=== PATIENT | male | born 1945 | race Caucasian/White ===

== ENCOUNTER → 2025-01-19 13:45 | Outpatient (BNVA) | payer MEDICARE, SELFPAY | PROVIDERS: Visit Provider Family Medicine | DX: I50.9 Heart failure, unspecified (principal); I48.91 Unspecified atrial fibrillation; R06.09 Other forms of dyspnea; E83.42 Hypomagnesemia; R79.89 Other specified abnormal findings of blood chemistry; Z12.5 Encounter for screening for malignant neoplasm of prostate | CPT/HCPCS: 80053; 80061; 82607; 83735; 83880; 84443; 85025; G0103 ==

== ENCOUNTER → 2025-02-02 08:50 | Outpatient (BNVA) | payer MEDICARE, SELFPAY | PROVIDERS: PCP Family Medicine; Visit Provider Family Medicine | DX: E87.6 Hypokalemia (principal); T50.2X5A Adverse effect of carbonic-anhydrase inhibitors, benzothiadiazides and other diuretics, initial encounter; I48.91 Unspecified atrial fibrillation; G47.00 Insomnia, unspecified; I11.0 Hypertensive heart disease with heart failure | CPT/HCPCS: 80048 ==

== ENCOUNTER 2025-02-17 14:31 | Outpatient (CLI) | payer MEDICARE, SELFPAY ==
--- NOTE | 2025-02-17 15:00 | USCV_ITS ---
Leo Jung JR(Clary) Age: 79 Gender: M : 1945 Exam Date: 02/17/2025 15:00 Ordering Phys: Jalen Duarte DO Technologist: JOSE Exam Location[place] [facility] [place]: HF BP: 183 / 93 HR: 79 Rhythm: Sinus Technical Quality: Adequate MEASUREMENTS (Male / Female) Normal Values 2D ECHO LV Diastolic Diameter PLAX 5.3 cm 4.2 - 5.9 / 3.9 - 5.3 cm IVS Diastolic Thickness 1.2 cm 0.6 - 1.0 / 0.6 - 0.9 cm IVS Systolic Thickness 1.8 cm LVPW Diastolic Thickness 1.8 cm 0.6 - 1.0 / 0.6 - 0.9 cm LVPW Systolic Thickness 2.4 cm LVOT Diameter 2.1 cm LV Ejection Fraction 2D Teich 56.2 % LV Ejection Fraction MOD 4C 58.3 % LV Ejection Fraction MOD 2C 66.3 % LV Ejection Fraction 2C AL 66.1 % LA Diameter 4.5 cm RA Systolic Volume 4C AL 68.9 ml RA Systolic Volume 4C MOD 67.0 ml LA Sys Volume AL 80.8 cm cubed LA Sys Volume Index AL 37.9 cm cubed/m squared Aorta at Sinotubular Diameter 2.8 cm M-MODE LA Ao Ratio MM 1.2 AV Cusp Separation MM 1.1 cm DOPPLER AV Peak Velocity 250.0 cm/s LVOT Peak Velocity 168.0 cm/s AV Area Cont Eq vti 2.2 cm squared AV Area Cont Eq pk 2.2 cm squared MV Peak Velocity 116.0 cm/s MV Area PHT 2.3 cm squared Mitral E to A Ratio 0.9 TV Peak E Velocity 83.0 cm/s PV Peak Velocity 107.0 cm/s FINDINGS Left Ventricle Normal left ventricular size, systolic function and wall thickness, with no regional wall motion abnormalities. Left ventricular ejection fraction is estimated at 60 %. Grade I/IV diastolic dysfunction (abnormal relaxation filling pattern), normal to mildly elevated filling pressures. Right Ventricle The right ventricle is normal in size and function. Right Atrium The right atrium is normal in size. Left Atrium Moderately increased left atrial size. Mitral Valve Thickened mitral valve. No mitral valve stenosis. Mild mitral valve regurgitation. Aortic Valve Moderate aortic valve calcification. Mild aortic valve stenosis, mean gradient 13.3 mmHg, DAVID 2.2 cm squared. Trace aortic valve regurgitation. Tricuspid Valve Structurally normal tricuspid valve without significant stenosis or regurgitation. Pulmonary artery systolic pressure is normal. Pulmonic Valve Structurally normal pulmonic valve without significant stenosis. There is no pulmonic regurgitation. Pericardium Normal pericardium without effusion. Aorta Normal ascending aorta dimension. IVC The inferior vena cava appears normal. CONCLUSIONS Normal left ventricular size, systolic function and wall thickness, with no regional wall motion abnormalities. Left ventricular ejection fraction is estimated at 60 %. Grade I/IV diastolic dysfunction (abnormal relaxation filling pattern), normal to mildly elevated filling pressures. Moderately increased left atrial size. Thickened mitral valve. No mitral valve stenosis. Mild mitral valve regurgitation. Moderate aortic valve calcification. Mild aortic valve stenosis, mean gradient 13.3 mmHg, DAVID 2.2 cm squared. Trace aortic valve regurgitation. There is no pericardial effusion. Right atrial pressure is around 5 mm of mercury. Ajay Castaneda MD (Electronically Signed) Final Date: 24 February 2025 12:12 S
== END 2025-02-17 14:32 | disposition home or self-care (01) ==
LOC: RAD 14:32
PROVIDERS: PCP Family Medicine; Visit Provider Family Medicine
DX: I50.9 Heart failure, unspecified (principal); R06.09 Other forms of dyspnea; I48.91 Unspecified atrial fibrillation; R93.1 Abnormal findings on diagnostic imaging of heart and coronary circulation; I51.7 Cardiomegaly; I34.0 Nonrheumatic mitral (valve) insufficiency; I35.8 Other nonrheumatic aortic valve disorders; I35.0 Nonrheumatic aortic (valve) stenosis
CPT/HCPCS: 93306

== ENCOUNTER → 2025-02-18 14:25 | Outpatient (BNVA) | payer MEDICARE, SELFPAY | PROVIDERS: PCP Family Medicine; Visit Provider Family Medicine | DX: I50.9 Heart failure, unspecified (principal); M79.89 Other specified soft tissue disorders; W57.XXXA Bitten or stung by nonvenomous insect and other nonvenomous arthropods, initial encounter; E87.6 Hypokalemia; T50.2X5A Adverse effect of carbonic-anhydrase inhibitors, benzothiadiazides and other diuretics, initial encounter; X58.XXXA Exposure to other specified factors, initial encounter | CPT/HCPCS: 80053; 83880; 86003; 86008; 86618; 86666; 86757 ==

== ENCOUNTER 2025-02-27 14:43 | Outpatient (CLI) | payer MEDICARE, SELFPAY ==
--- NOTE | 2025-02-27 15:00 | USR_ITS ---
PROCEDURE INFORMATION: Exam: US Retroperitoneal, Complete, Kidneys and Bladder Exam date and time: 02/27/2025 3:03 PM Age: 79 years old Clinical indication: Condition or disease; Kidney or ureter condition; Other: - acute kidney failure; Additional info: N17.9 - acute kidney failure, unspecified TECHNIQUE: Imaging protocol: Real-time ultrasound of the retroperitoneum with image documentation. Complete exam focused on the bilateral kidneys and urinary bladder. COMPARISON: No relevant prior studies available. FINDINGS: The right kidney measures 9.8 cm in length. The left kidney measures 11.0 cm in length. There appears to be mild to moderate bilateral hydronephrosis. Etiology is not certain. This could be secondary to the urinary bladder distension, with and without vesicoureteral reflux. Other possible etiologies would include pyelonephritis, occult ureteral calculi, and less commonly ureteral stricture/neoplasm. No definite perinephric fluid. Both proximal ureters are probably dilated, but not well visualized. The renal parenchymal thickness and echogenicity appear within normal limits for age. There is no sonographically visible renal calculus, mass, or cyst. The urinary bladder appears significantly distended at the time of scanning. The urinary bladder measures about 18.5 x 11 x 13.5 cm, estimated volume approximately 14 30 cc. Please correlate clinically for possibility of bladder outlet obstruction. US/US renal BI* [id number] IMPRESSION: 1. There appears to be mild to moderate bilateral hydronephrosis. See additional discussion above. 2. Prominent urinary bladder distension, details above. 3. Other findings discussed above.
== END 2025-02-27 14:44 | disposition home or self-care (01) ==
LOC: RAD 14:48
PROVIDERS: PCP Family Medicine; Visit Provider Family Medicine
DX: N17.9 Acute kidney failure, unspecified (principal); N18.9 Chronic kidney disease, unspecified; N13.30 Unspecified hydronephrosis; N32.89 Other specified disorders of bladder
CPT/HCPCS: 76770

== ENCOUNTER → 2025-03-12 10:34 | Outpatient (BNVA) | payer MEDICARE, SELFPAY | PROVIDERS: PCP Family Medicine; Referring Provider Family Medicine; Visit Provider Internal Medicine Cardiovascular Disease | DX: R60.0 Localized edema (principal); I12.9 Hypertensive chronic kidney disease with stage 1 through stage 4 chronic kidney disease, or unspecified chronic kidney disease; N18.4 Chronic kidney disease, stage 4 (severe); I35.0 Nonrheumatic aortic (valve) stenosis; I49.1 Atrial premature depolarization; R07.9 Chest pain, unspecified; R00.2 Palpitations | CPT/HCPCS: 93005; 99204 ==

== ENCOUNTER 2025-03-16 13:39 | Inpatient (IN) | payer MEDICARE, SELFPAY ==
[2025-03-16] VITALS (27 sets, daily range): BP systolic 138–193; BP diastolic 58–116; PULSE 68–90; RESP 16–27; TEMP 36.6–37.3; O2SAT 90–99; BMI 27.1; BMI 28.3
--- NOTE | 2025-03-16 14:14 | CT_ITS ---
WS: [id number] CT HEAD NONCONTRAST HISTORY: weakness, off balance TECHNIQUE: Contiguous axial imaging performed through the brain. Bone and soft tissue windows. Sagittal and coronal reformats reviewed. All CT scans at [facility] use at least one of these dose optimization techniques: automated exposure control; mA and/or kV adjustment per patient size (includes targeted exams where dose is matched to clinical indication); or iterative reconstruction. DLP: 1210.78 mGy.cm COMPARISON: None available. No acute intracranial hemorrhage, midline shift or mass effect. Mild atrophy and small vessel disease. Slightly asymmetric volume loss in the LEFT temporal lobe probably from a prior infarct. There is encephalomalacia. No mass effect. Tiny lacunar infarct in the medial RIGHT hippocampus. Tiny lacunar infarct anterior limb RIGHT internal capsule. Ventricles: Mildly prominent ventricles. No hydrocephalus. Paranasal sinuses: As visualized are clear. Mastoid air cells: Well pneumatized. Calvarium and scalp: Skull is intact with no soft tissue edema or swelling. CT/CT head wo con* [id number] IMPRESSION: 1. No acute intracranial hemorrhage or edema. 2. Mild atrophy and small vessel disease. 3. Volume loss in the LEFT temporal lobe. Suspect there is a small infarct wit h encephalomalacia in the temporal lobe. Mild ex vacuo dilatation temporal horn of the lateral ventricle. 4. Prior lacunar infarcts, RIGHT hippocampus and internal capsule.
--- NOTE | 2025-03-16 14:14 | ECG_ITS ---
SNAPCARD [facility] Test Date: 2025-03-16 Pat Name: Leo Jung JR (Pat) Department: Room: Gender: Male [employer] Technician: : 1945 Requested By: David Patiño Order Number: [id number] Abiodun MD: Branden Vargas M.D. Measurements Intervals [place] Rate: 77 P: 58 MA: 250 QRS: 42 QRSD: 97 T: 63 QT: 393 QTc: 447 Interpretive Statements Multifocal atrial rhythm WITH FIRST DEGREE AV BLOCK. NONSPECIFIC ST & T-WAVE ABNORMALITY Compared to ECG 03/12/2025 10:48:58 First degree AV block now present T-wave abnormality still present Electronically Signed On 03-17-2025 08:00:22 CDT by Branden Vargas M.D. [email or web address]
--- NOTE | 2025-03-16 14:14 | XR_ITS ---
WS: [id number] XR chest 1V portable [id number] REASON FOR EXAM: weakness FINDINGS: Moderate tortuosity and ectasia of the thoracic aorta. Mild cardiomegaly. Calcified granulomas disease in both hemithoraces. No acute pulmonary parenchymal abnormality. 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 Multiple old healed right rib fractures. 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 XR/XR chest 1V portable [id number] IMPRESSION: No acute chest abnormality. Mild cardiomegaly.
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
[2025-03-16 14:31] LABS: Mean Corpuscular HGB Conc 30.9 g/dL (30-55); Mean Corpuscular Hemoglobin 29.3 pg (27-33); Mean Corpuscular Volume 95.1 fl (82-101); Nucleated Red Blood Cells % 0 %; Platelet Count 201 10^3/cmm (157-399); Red Blood Count 1.84 10^6/uL (3.85-5.65); White Blood Count 7.56 10^3/uL (3.29-11.43)
[2025-03-16 14:33] LABS: Hematocrit 17.5 % (37-53); Hemoglobin 5.40 g/dL (11.27-16.99)
[2025-03-16 14:51] LABS: Troponin(5th) Baseline 43 ng/L (0-15)
[2025-03-16 15:02] LABS: Alanine Aminotransferase 9 U/L (0-41); Albumin Level 3.4 g/dL (3.5-5.2); Alkaline Phosphatase 85 U/L (40-130); Anion Gap 16.5 (5-19); Aspartate Amino Transferase 9 U/L (0-40); Blood Urea Nitrogen 30 mg/dL (8-23); Calcium 8.4 mg/dL (8.5-10.5); Carbon Dioxide 23 mmol/L (22-29); Chloride 107 mmol/L (98-107); Creatinine Clr Calc Pharmacy 29.2458; Globulin 1.9 g/dL (1.3-4.6); Glucose 167 mg/dL (65-115); Magnesium 2.4 mg/dL (1.7-2.3); NT Pro B Type Natriuretic Pept 7242 pg/mL (0-450); Osmolality Calculated 304 mOsm/kg (285-295); Potassium 4.5 mmol/L (3.5-5.1); Sodium 142 mmol/L (136-145); Total Protein 5.3 g/dL (6.6-8.7)
[2025-03-16 15:23] LABS: Respiratory Syncytial Virus Ce NEGATIVE (Negative); SARS-CoV-2 PCR NEGATIVE (Negative)
--- NOTE | 2025-03-16 15:26 | CTR_ITS ---
PROCEDURE INFORMATION: Exam: CT Abdomen And Pelvis With Contrast Exam date and time: 03/16/2025 3:51 PM Age: 79 years old Clinical indication: Abdominal pain; Generalized; Additional info: Abd pain TECHNIQUE: Imaging protocol: Computed tomography of the abdomen and pelvis with contrast. Radiation optimization: All CT scans at this facility use at least one of these dose optimization techniques: automated exposure control; mA and/or kV adjustment per patient size (includes targeted exams where dose is matched to clinical indication); or iterative reconstruction. Contrast material: OMNI 350; Contrast volume: 100 ml; Contrast route: INTRAVENOUS (IV); COMPARISON: US renal BI* [id number] 02/27/2025 3:03 PM RADIATION DOSE METRICS: Total DLP (mGy-cm): 967.37 FINDINGS: Lungs: Mild bibasilar interstitial thickening, which could represent mild edema or chronic fibrotic changes. Small pleural calcification in the right costophrenic sulcus. Liver: 7 mm subcapsular hypodensity in the left lobe of the liver, too small to characterize. Hepatic cyst is likely. Gallbladder and biliary ducts: The gallbladder is normal. There is no evidence of biliary ductal dilation. Pancreas: 6 mm cyst in the tail of the pancreas. No other pancreas mass. Spleen: The spleen is normal. Adrenal glands: The adrenal glands are normal. Kidneys and ureters: Bilateral moderate to severe hydronephrosis and hydroureter persist. Hydroureter extends to the level of the ureterovesical junctions. 12 mm dependent calculus in the bladder abuts the right UVJ. No calculi involving the left ureter. No renal masses. Stomach and bowel: 12 mm defect is noted in the lateral wall of the duodenal bulb. A well-defined 3 cm collection of fluid and gas protrudes through the defect, surrounded by mildly ill-defined soft tissue density in the adjacent mesenteric fat. Additional mural thickening is present in the duodenal bulb and 2nd portion of the duodenum. Bowel caliber is normal. Nonobstructed colon is located in a large left inguinal hernia. Appendix: Normal appendix. Intraperitoneal space: No significant peritoneal free fluid. No free peritoneal air. Vasculature: Aortic caliber is normal. Lymph nodes: No lymph node enlargement. Urinary bladder: The bladder is enlarged, with the dome extending above the umbilicus. A focal area of wall thickening is not noted beyond the prostate. Reproductive: The prostate gland is enlarged, in the lobulated dome protrudes into the bladder base. Bones/joints: No acute osseous abnormality. Soft tissues: Large left inguinal hernia containing colon. Fat containing right inguinal hernia. CT/CT abdomen pelvis w con* [id number] IMPRESSION: 1. Paraduodenal collection of fluid and gas most likely representing duodenal bulb ulceration. Duodenal diverticulitis is an additional possibility. 2. Bilateral moderate to severe hydronephrosis consistent with bladder outlet obstruction. 3. Enlarged bladder containing an intraluminal calculus. Bladder outlet obstruction is suspected. 4. Enlarged and lobulated prostate gland. 5. Large left inguinal hernia containing a nonobstructed loop of colon. 6. 6 mm pancreatic cyst. Reimaging every 2 years for 10 years is recommended. (Reference: Julio, 2017) REFERENCES: Julio ROSADO, et al. Management of Incidental Pancreatic Cysts: A White Paper of the ACR Incidental Findings Committee. J Am Nitza Radiol. 2017;14(7):911-923.
--- NOTE | 2025-03-16 15:28 | ECG_ITS ---
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 Measurements Intervals [place] Rate: 78 P: 0 AR: 0 QRS: 53 QRSD: 98 T: 65 QT: 386 QTc: 441 Interpretive Statements ATRIAL FIBRILLATION NONSPECIFIC ST & T-WAVE ABNORMALITY ABNORMAL RHYTHM ECG Compared to ECG 03/16/2025 14:22:16 Sinus rhythm no longer present First degree AV block no longer present T-wave abnormality still present Electronically Signed On 03-17-2025 18:10:41 CDT by Branden Vargas M.D. [email or web address]
--- NOTE | 2025-03-16 15:52 | PM.CONSULT ---
Providers/Reason For Consult Consulting Physician/Specialty*: General Surgery Reason for Consult*: Acute upper GI bleeding Primary Care Provider: Jalen Duarte DO History of Present Illness History of Present Illness Leo Jung Jr is a 79 year old male who presents to the hospital with weakness noted to have a hemoglobin of 5.4, he also has history of chronic kidney disease. Endorses having melena over the past week or so, no significant abdominal pain, no hematemesis. Review of Systems General: Reports: 10 or more systems reviewed and unremarkable except in HPI and below Medications/Allergies Home Medications ?Medication ?Instructions ?Recorded ?Confirmed ?Last Taken ?Type carvedilol 6.25 mg tablet 6.25 mg PO BID #60 tabs 02/02/25 03/16/25 03/16/25 Rx hydralazine 25 mg tablet 25 mg PO TID #90 tabs 02/02/25 03/16/25 03/16/25 Rx mirtazapine 7.5 mg tablet 7.5 mg PO DAILY PRN insomnia, low 02/02/25 03/16/25 Unknown Rx appetite #30 tabs furosemide 40 mg tablet (Lasix) 40 mg PO BID PRN Edema 03/12/25 03/16/25 Unknown History mupirocin 2 % topical ointment 1 applic topical BID PRN Skin 03/16/25 03/16/25 Unknown History Irritation potassium chloride 10 mEq 10 meq PO DAILY 03/16/25 03/16/25 03/16/25 History capsule,extended release Allergies Allergy/AdvReac Type Severity Reaction Status Date / Time Tetanus Vaccines and Toxoid Allergy Unknown Verified 03/12/25 10:37 PFSH Acute PFSH: Social History Smoking and tobacco/nicotine status: never used tobacco/nicotine Vitals/I&O/Wt Last Vital Signs Temp 98.1 F 03/16/25 13:49 Pulse 78 03/16/25 15:00 Resp 16 03/16/25 13:49 BP 173/83 03/16/25 15:00 Pulse Ox 94 03/16/25 15:00 O2 Del Method Room Air 03/16/25 15:00 Weight last 48 hrs Weight 200 lb Physical Exam Narrative: Abdominal exams benign abdomen soft nontender nondistended. Data 03/16/25 14:20 03/16/25 14:20 A&P Assessment and plan 1. Acute upper GI bleed: 2. Stage 4 chronic kidney disease: 3. Dyspnea on exertion: Plan: This a 79-year-old male who presents with acute anemia in the setting of a possible upper GI bleeding. He denies significant abdominal pain. No significant consumption of ibuprofen or NSAIDs. Does have chronic kidney disease but does not require dialysis his creatinine today is 2.4. After complete history physical examination review of all available clinical data I have decided to offer the patient an upper endoscopy with possible bleeding control. We will proceed with endoscopy in the morning after patient receives initial resuscitation and blood transfusion by medical service. I recommend he is on a high-dose PPI and after endoscopy we can initiate Carafate. I discussed all risk benefits of the procedure including the risks of rebleeding, need for additional expertise regarding evaluation by GI team, perforation of the esophagus stomach or duodenum requiring surgical intervention and transfer to higher level of care, and need for any additional interventions, injury to soft tissue of the mouth and pharynx and injury to the teeth. Patient shows understanding agrees with plan. PDMP PDMP Reviewed: Not Reviewed Coding Level of Care Code 97102 Diagnoses Acute upper GI bleed K92.2 Stage 4 chronic kidney disease N18.4 Chronic kidney disease stage: stage 4 (GFR 15-29) Dyspnea on exertion R06.09
[2025-03-16] MEDS: iohexol 350 mg/mL 500 mL Btl (per mL) IV (15:53)
--- NOTE | 2025-03-16 16:39 | PC.NURSE ---
report called to Evelin MAC CSU at 1895.
[2025-03-16 16:53] LABS: Troponin 5 2HR 37.54 ng/L (0-15)
[2025-03-16 16:54] LABS: Troponin 5 2HR Delta -5.46 ABS# (0-10)
--- NOTE | 2025-03-16 17:47 | PM.MISC ---
Miscellaneous Note Purpose of Documentation: Update on patient care Note: I have reviewed the imaging, I discussed with the patient findings of large duodenal ulcer. Will proceed with endoscopy early in the morning tomorrow. In the case of lack of bleeding control or rebleeding after endoscopy tomorrow patient will require additional evaluation by gastroenterology due to the location and size of the ulcer. In the interim we will start him on PPI, he will have clears tonight and will start a dose of Carafate.
[2025-03-16] MEDS: pantoprazole 40 mg SDV IVP (18:18)
--- NOTE | 2025-03-16 20:05 | ECG_ITS ---
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 Measurements Intervals Cannon Rate: 89 P: 0 ND: 0 QRS: 55 QRSD: 98 T: 51 QT: 370 QTc: 451 Interpretive Statements ATRIAL FIBRILLATION MODERATE ST DEPRESSION [0.05+ mV ST DEPRESSION] Compared to ECG 03/16/2025 14:22:16 ST (T wave) deviation now present Sinus rhythm no longer present First degree AV block no longer present T-wave abnormality no longer present Electronically Signed On 03-17-2025 18:09:25 CDT by Branden Vargas M.D. [email or web address]
[2025-03-16] MEDS: sucralfate 1 gm/10 mL Oral Liq UDC PO (20:36)
[2025-03-16 21:12] LABS: Glucose Urine UA Negative (Normal); Nitrate Urine Negative (Negative); Specific Gravity, Urine 1.011 (1.005-1.030)
[2025-03-16 21:17] LABS: Add Urine Microscopic? YES
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
--- NOTE | 2025-03-16 23:26 | PC.NURSE ---
Addendum entered by Milagros Roca RN 03/17/25 05:50: At shift change patient BP was elevated with SBP in the 190's. Dr. Harley notified discussing patient home medications and ordered IVF. Received orders to start hydralazine 25 mg TID and hold LR. Original Note: At 2049 this nurse went to collect urine sample from patients catheter. Patients urine is pink in color. Dr. Harrington notifed regarding urine color and that patient is on his second unit of blood for a hgb of 5.4. No new orders received. stock supervisor made aware of the situation and came to look at urine. A picture of the urine was sent to Dr. harley and the situation explained. Dr. Harley stated that the patient has BPH and asked if the cath was inserted here. Received orders to monitor and he will see it in the AM.
[2025-03-16 23:54] LABS: Hematocrit 21.7 % (37-53); Hemoglobin 7.10 g/dL (11.27-16.99); Mean Corpuscular HGB Conc 32.7 g/dL (30-55); Mean Corpuscular Hemoglobin 30.0 pg (27-33); Mean Corpuscular Volume 91.6 fl (82-101); Nucleated Red Blood Cells % 0 %; Platelet Count 215 10^3/cmm (157-399); Red Blood Count 2.37 10^6/uL (3.85-5.65); White Blood Count 9.49 10^3/uL (3.29-11.43)
[2025-03-17] VITALS (11 sets, daily range): BP systolic 91–175; BP diastolic 50–84; PULSE 73–88; RESP 16–25; TEMP 36.4–37.3; O2SAT 91–98; BMI 27.4
[2025-03-17 00:14] LABS: Troponin 5 6HR 41.57 ng/L (0-15)
[2025-03-17 00:18] LABS: Troponin 5 6HR Delta -1.43 ng/L (0-12)
--- NOTE | 2025-03-17 05:47 | PC.NURSE ---
0000- Patient requesting something for sleep, Dr. Harrington notified. to place orders. 0340- Updated Dr. Harrington regarding urine output becoming darker pink. Received order that if not clotting leave for AM physician.
--- NOTE | 2025-03-17 05:48 | W.PM.OPSUD ---
Surgery/Procedure H&P Update DATE OF PROCEDURE: March 17, 2025 DATE H&P PERFORMED: 03/16/25 H&P UPDATE INFORMATION: I have reviewed H&P completed within last 30 days, I have examined patient prior to procedure, No changes to prior documentation, H&P is in [facility] EMR on date indicated and Risks and benefits of the procedure reviewed PLANNED PROCEDURE: Operation Date: 03/17/25 07:15 Proposed Procedures p EGD(Not Applicable) - David Ross MD
[2025-03-17] MEDS: pantoprazole 40 mg SDV IVP ×2 (06:04→17:29)
--- NOTE | 2025-03-17 06:30 | PC.NURSE ---
GI lab at bedside to take patient. At this time urine is now clear yellow in color.
--- NOTE | 2025-03-17 07:39 | PC.NURSE ---
Patient at GI lab at shift change.
--- NOTE | 2025-03-17 08:39 | P.PN_ITS ---
Subjective 2 Subjective: Hemoglobin has remained stable. Otherwise no other issues, no bowel movement since admission. Vitals/I&O/Wt Last Vital Signs Temp 98.1 F 03/17/25 06:35 Pulse 74 03/17/25 06:35 Resp 16 03/17/25 06:35 BP 159/83 03/17/25 06:35 Pulse Ox 93 03/17/25 06:35 O2 Del Method Room Air 03/17/25 06:35 03/16/25 03/17/25 03/17/25 22:59 06:59 14:59 Intake Total 1020 / 1020 Output Total 550 / 550 5275 / 5825 Balance 470 / 470 -5275 / -4805 Weight last 48 hrs Weight 202 lb 9.6 oz Weight 202 lb 9.6 oz Weight 209 lb 3 oz Weight 200 lb Physical Exam 2 GI: OTHER: Benign abdominal exam abdomen soft and nontender. Urinary Catheter Management: Aldridge: Cath Placed During This Visit: yes Urinary Catheter Date of Insertion: 03/16/25 Data 03/16/25 22:38 03/16/25 14:20 A&P Assessment and plan 1. Acute upper GI bleed: Plan: Very large duodenal ulcer found on endoscopy today. No need for intervention at there was no active bleeding only mild mucosal bleeding. In the case of rebleeding patient will require evaluation by GI. I recommend we continue to trend hemoglobin, he can be started on a full liquid diet today he should continue high-dose PPI and 4 times a day Carafate. If he is tolerating by the morning tomorrow he can be advanced to a GI soft diet and he will have to stay on a GI soft diet for the next 4 to 6 weeks until a repeat endoscopy is done. Will follow-up the results of the biopsies if patient does have H. pylori will start treatment as outpatient. PDMP PDMP Reviewed: Not Reviewed Attestations 2 Medical Necessity Statement*: Per medical team Coding Level of Care Code Acute Code for Chg Fwd Diagnoses Acute upper GI bleed K92.2
--- NOTE | 2025-03-17 09:00 | ANE.PACU2 ---
Inpatient post-anesthesia follow up: Airway intact: Yes Vital signs: Temperature 97.9 F Pulse Rate 84 Respiratory Rate 15 Blood Pressure 164/75 Pulse Oximetry 98 Oxygen Delivery Me thod Room Air Oxygen Flow Rate Fraction of Inspir ed Oxygen Hydration adequate: Yes Nausea and vomiting: No Pain level: 1 Mental status: Baseline
--- NOTE | 2025-03-17 09:23 | PC.NURSE ---
Patient returned from GI lab to CSU at 0915.
[2025-03-17 10:12] LABS: Hematocrit 24.3 % (37-53); Hemoglobin 7.60 g/dL (11.27-16.99); Mean Corpuscular HGB Conc 31.3 g/dL (30-55); Mean Corpuscular Hemoglobin 29.3 pg (27-33); Mean Corpuscular Volume 93.8 fl (82-101); Nucleated Red Blood Cells % 0 %; Platelet Count 223 10^3/cmm (157-399); Red Blood Count 2.59 10^6/uL (3.85-5.65); White Blood Count 7.47 10^3/uL (3.29-11.43)
--- NOTE | 2025-03-17 10:12 | PC.CHAP ---
Pastoral Care Encounter/Spiritual Assessment Type of Contact [] Declined gyroscope technician visit [] Patient/Family/Request visit [] Outpatient visit [] Follow-up visit [] Physician referral [] Code/Alert [] Routine visit [] Staff referral [] Actively dying [] Patient sleeping [] Family support [] [x] Out of room [] Palliative care [] [] Receiving care in room [] Pre-surgical visit [] Trauma [] Long length of stay [] ICU visit [] Other: Relational/Emotional Strength [] Patient feels connected with others/family/visitors/staff [] Distress [] Loneliness/isolation [] Abandonment Spirituality of Patient [] Person of Marta [] Attends Yarsanism of their Marta [] Believes in Prayer [] Reads Bible or Restorationism materials [] There are Spiritual issues to be addressed Lead Manufacturing Engineering Tech Interventions [] Prayer [] Active listening [] Non-anxious presence [] Spiritual/emotional support [] Crisis/trauma care [] Spiritual counseling [] Bereavement support [] Provided bereavement packet [] Provided Bible/devotional materials [] Provided toy/stuffed animal, coloring book to patient or family member [] Provided Communion [] Anointing/[place] [] Salvation [] Completed spiritual assessment [] Other: Impact on Illness or Injury [] Angry [] Fearful [] Anxious [] Often cries [] Exhaustion [] Unable to work [] Unable to attend hoahaoism [] Unable to walk/stand [] Unable to read [] Unable to drive [] Unable to eat/drink [] Unable to sleep [] Unable to be with family [] Patient intubated [] Other: Summary Time spent with patient
[2025-03-17 10:28] LABS: Alanine Aminotransferase 9 U/L (0-41); Albumin Level 3.3 g/dL (3.5-5.2); Alkaline Phosphatase 91 U/L (40-130); Anion Gap 18.7 (5-19); Aspartate Amino Transferase 10 U/L (0-40); Blood Urea Nitrogen 28 mg/dL (8-23); Calcium 8.5 mg/dL (8.5-10.5); Carbon Dioxide 24 mmol/L (22-29); Chloride 102 mmol/L (98-107); Creatinine Clr Calc Pharmacy 28.2360; Globulin 2.6 g/dL (1.3-4.6); Glucose 124 mg/dL (65-115); Osmolality Calculated 299 mOsm/kg (285-295); Potassium 3.7 mmol/L (3.5-5.1); Sodium 141 mmol/L (136-145); Total Protein 5.9 g/dL (6.6-8.7)
--- NOTE | 2025-03-17 10:56 | P.PN_ITS ---
Subjective 2 Subjective: the patient was seen post procedure endoscopy and is doing well. no jerrod episodes reported yet feeling better overall hn stable endoscopy revealed large mucosal duodenal ulcer and started on full liquid diet today, tolerating well. Vitals/I&O/Wt Last Vital Signs Temp 98.0 F 03/17/25 08:37 Pulse 77 03/17/25 09:40 Resp 19 H 03/17/25 09:40 BP 175/67 03/17/25 09:40 Pulse Ox 95 03/17/25 09:40 O2 Del Method Room Air 03/17/25 08:54 03/16/25 03/17/25 03/17/25 22:59 06:59 14:59 Intake Total 1020 / 1020 1100 / 1100 Output Total 550 / 550 5275 / 5825 1600 / 1600 Balance 470 / 470 -5275 / -4805 -500 / -500 Weight last 48 hrs Weight 91.898 kg Weight 91.898 kg Weight 94.886 kg Weight 90.718 kg Physical Exam 2 Narrative: General: In no acute distress, at room air, alert oriented x 3, looks pale Neck: No jugular venous, no carotid bruit, or any swelling appreciated Heart: normal rate rythm, regular, systolic murmur grade 2/6 at the aortic area, no other heart sounds appreciated Lungs: Normal respiratory effort with no use of intercostal muscles, clear lungs sounds to auscultation Extremities: 3+ BLE edema to the knees Neuro: Alert and oriented x 3 skin: pallor +marlee, normal capillary refill on folleys catheter and making adequate amount of urine Urinary Catheter Management: Aldridge: Cath Placed During This Visit: yes Urinary Catheter Date of Insertion: 03/16/25 Data 03/17/25 09:47 03/17/25 09:47 A&P Assessment and plan 1. Duodenal ulcer hemorrhage: PPI bid IV carafate 4 times daily liquid diet FU biopsy results of endoscopy in case of re-bleeding, to transfer pt under GI care maintain GI soft diet at the time of discharge until repeat endoscopy is done in 4-6 weeks as per surgery plan 2. Acute upper GI bleed: - keep 2 IV bore cannula, hb to be kept above 7g/dl - CBC 3 times daily for 24 hours - active type and screen - hold any anticoagulation untill hb is stable and no significant drop in 48 hours and avoid NSAIDS - PPI 40mg iv bid - CT angio: results reviewed showed duodenal bulb ulcer ( for detailed report refer to the ct scan), enlarged prostate and bilateral hydronephrosis 3. Acute blood loss anemia: keep type and screen active and standy PRBC maintain HB >7g/dl 4. Aortic valve stenosis: - keep on telemetry - monitor for symptoms 5. Bilateral lower extremity edema: lasix 40mg oral daily,( patient takes 40mg lasix bid as needed at home), considering his severe LLE edema upto knees and high BP, but at the sametime having LGIB, to keep a lower dose with adequate monitoring 6. Stage 4 chronic kidney disease: likey post renal considering having enlarged prostate and bilateral hydronephrosis patient also had high PSA levels, around 5 in december, need urology at outpatient continue on tamsulosin 0.4mg daily and monitor intake and output maintain folleys care 7. Elevated PSA: enlarged prostate and bilateral hydronephrosis, patient need urology at outpatient monitor intake and output 8. Essential hypertension: hold BB since the patient is having active LGIB and need to monitor for compensatory response of the heart, and in case hb is stable and no further bleeding to re-introduce BB increase hydralazine to 50mg tid ( home 25tid) for better BP control lasix 40mg oral daily tamsulosin as well may contribute to some amount for BP control PDMP PDMP Reviewed: Not Reviewed Attestations 2 Medical Necessity Statement*: Leo [facility]'s hospital stay will require greater than 2 midnights for management of LGIB, bladder outlet obstructio/ enlarged prostate, HTN and other comorbid conditions Time Spent in Patient Care: 16 - 35 minutes (>than 50% of time sp ent in counselling and/or direct pt care on unit) . Other Attestations: Patient condition has been discussed at length with the patient/family, I have independently reviewed the chart labs imaging and diagnostics and EKG. the goals of care and code status with the patient/family/NOK/legal retention representative, and documented accordingly. The patient/family has been informed about the current condition and further plan of care. Agreed with the plan of care and understood without any language barrier. Every effort was made to ensure accuracy of welfare administrator. Any obvious errors or omissions should be clarified with the author of the document. Coding Level of Care Code 17639 Diagnoses Duodenal ulcer hemorrhage K26.4 Acute upper GI bleed K92.2 Acute blood loss anemia D62 Aortic valve stenosis I35.0 Bilateral lower extremity edema R60.0 Stage 4 chronic kidney disease N18.4 Chronic kidney disease stage: stage 4 (GFR 15-29) Elevated PSA R97.20 Essential hypertension I10
[2025-03-17] MEDS: sucralfate 1 gm/10 mL Oral Liq UDC PO ×3 (11:10→20:51)
[2025-03-17 15:06] LABS: Hematocrit 21.9 % (37-53); Hemoglobin 7.20 g/dL (11.27-16.99); Mean Corpuscular HGB Conc 32.9 g/dL (30-55); Mean Corpuscular Hemoglobin 29.9 pg (27-33); Mean Corpuscular Volume 90.9 fl (82-101); Nucleated Red Blood Cells % 0 %; Platelet Count 195 10^3/cmm (157-399); Red Blood Count 2.41 10^6/uL (3.85-5.65); White Blood Count 7.34 10^3/uL (3.29-11.43)
[2025-03-18 00:11] VITALS: BP 131/59; PULSE 107; RESP 20; TEMP 36.8
[2025-03-18 04:30] VITALS: BP 125/67; PULSE 79; RESP 20; TEMP 36.9; O2SAT 97
[2025-03-18 06:48] LABS: Hematocrit 22.9 % (37-53); Hemoglobin 7.30 g/dL (11.27-16.99); Mean Corpuscular HGB Conc 31.9 g/dL (30-55); Mean Corpuscular Hemoglobin 29.1 pg (27-33); Mean Corpuscular Volume 91.2 fl (82-101); Nucleated Red Blood Cells % 0 %; Platelet Count 216 10^3/cmm (157-399); Red Blood Count 2.51 10^6/uL (3.85-5.65); White Blood Count 7.85 10^3/uL (3.29-11.43)
[2025-03-18] MEDS: pantoprazole 40 mg SDV IVP (07:13)
[2025-03-18] MEDS: sucralfate 1 gm/10 mL Oral Liq UDC PO ×2 (07:13→11:24)
[2025-03-18 07:16] LABS: Anion Gap 14.6 (5-19); Blood Urea Nitrogen 28 mg/dL (8-23); Calcium 8.1 mg/dL (8.5-10.5); Carbon Dioxide 27 mmol/L (22-29); Chloride 102 mmol/L (98-107); Creatinine Clr Calc Pharmacy 28.2360; Glucose 134 mg/dL (65-115); Osmolality Calculated 297 mOsm/kg (285-295); Potassium 3.6 mmol/L (3.5-5.1); Sodium 140 mmol/L (136-145)
[2025-03-18 07:54] VITALS: BP 164/75; PULSE 84; RESP 15; TEMP 36.6; O2SAT 98
--- NOTE | 2025-03-18 08:22 | P.PN_ITS ---
Subjective 2 Subjective: Doing well this morning, no abdominal pain, tolerating diet. In good spirits. Vitals/I&O/Wt Last Vital Signs Temp 97.9 F 03/18/25 07:54 Pulse 84 03/18/25 07:54 Resp 15 03/18/25 07:54 BP 164/75 03/18/25 07:54 Pulse Ox 98 03/18/25 07:54 O2 Del Method Room Air 03/18/25 04:30 03/17/25 03/18/25 03/18/25 22:59 06:59 14:59 Intake Total 480 / 2060 Output Total 775 / 3175 875 / 875 Balance -295 / -1115 -875 / -875 Weight last 48 hrs Weight 202 lb 9.6 oz Weight 202 lb 9.6 oz Weight 209 lb 3 oz Weight 200 lb Physical Exam 2 GI: OTHER: Abdomen soft nontender nondistended. Urinary Catheter Management: Aldridge: Cath Placed During This Visit: yes Urinary Catheter Date of Insertion: 03/16/25 Data 03/18/25 06:34 03/18/25 06:34 A&P Assessment and plan 1. Duodenal ulcer hemorrhage: Plan: Patient appears to have good hospital course. Hemoglobin has remained stable he is in good spirits and tolerating diet. He is cleared to transition to the outpatient setting from the surgical standpoint, he should remain on twice a day PPI and Carafate twice a day for the next 4 to 6 weeks. He can return to my office in 2 weeks and at that time we will discuss repeat upper endoscopy to evaluate healing of duodenal ulcer. PDMP PDMP Reviewed: Not Reviewed Attestations 2 Medical Necessity Statement*: Per medical team Coding Level of Care Code Acute Code for Chg Fwd Diagnoses Duodenal ulcer hemorrhage K26.4
--- NOTE | 2025-03-18 10:03 | PC.CHAP ---
Pastoral Care Encounter/Spiritual Assessment Type of Contact [] Declined hedis nurse visit [] Patient/Family/Request visit [] Outpatient visit [] Follow-up visit [] Physician referral [] Code/Alert [x] Routine visit [] Staff referral [] Actively dying [] Patient sleeping [] Family support [] [] Out of room [] Palliative care [] [] Receiving care in room [] Pre-surgical visit [] Trauma [] Long length of stay [] ICU visit [] Other: Relational/Emotional Strength [x] Patient feels connected with others/family/visitors/staff [] Distress [] Loneliness/isolation [] Abandonment Spirituality of Patient [x] Person of Marta [] Attends Sikhism of their Marta [x] Believes in Prayer [] Reads Bible or Oriental Orthodox materials [] There are Spiritual issues to be addressed Schedule Planning Manager Interventions [x] Prayer [x] Active listening [x] Non-anxious presence [x] Spiritual/emotional support [] Crisis/trauma care [] Spiritual counseling [] Bereavement support [] Provided bereavement packet [] Provided Bible/devotional materials [] Provided toy/stuffed animal, coloring book to patient or family member [] Provided Communion [] Anointing/[place] [] Salvation [x] Completed spiritual assessment [] Other: Impact on Illness or Injury [] Angry [] Fearful [] Anxious [] Often cries [] Exhaustion [] Unable to work [] Unable to attend uatsdin [] Unable to walk/stand [] Unable to read [] Unable to drive [] Unable to eat/drink [] Unable to sleep [] Unable to be with family [] Patient intubated [] Other: Summary Time spent with patient 5 min
--- NOTE | 2025-03-18 14:06 | P.DS_ITS ---
Discharge Providers Date of Admission: 03/16/25 16:18 Date of Discharge: March 18, 2025 Attending Provider at Admission: Israel Harley MD Attending Provider at Discharge: Israel Harley MD Primary Care Provider: Jalen Duarte DO Diagnoses at Discharge Discharge Diagnosis 1. Duodenal ulcer hemorrhage: Reason for Visit Reason for Visit: Generalized weakness Brief History: history as per the previous notes and the patient: Leo Jung Jr is a 79 year old male with PMH of aortic stenosis, lower ext edema still unsure as per the notes if related to CKD or HF since his Echo did not show significant reduced heart function, HTN, stage 4 CKD came due to generalised weakness from last 1 week. the reported having associated dark stools, soft in consistency 3-4 days ago. no dizziness, or syncope. no easy brusing, gum bleeding, no hematemesis. no sob, worsening of lower ext edema, PND or any chest pain. no h/o excessive alcohol intake, liver disease, drug abuse, NSAIDs use. the patient reported having abd pain intermittent with food from the last week that was mid epigastric in nature, without radiation with mild nausea. no wt loss, night sweats or any fevers. admitted currently as a case of LGIB for further work up and management. Hospital Course Hospital Course The patient underwent CT angio that showed duodenal bulb ulceration and large duodenal ulcer. Patient underwent endoscopy by the surgery and showed duodenal ulceration with mucosal bleeding. Patient recommended to be kept on PPI twice daily for 6 weeks and later to kept on daily until seen by the surgery for possible repeat endoscopy. The patient was also having bladder outlet obstruction with calculus on CT scan. Aldridge's was inserted and patient passed good amount of urine with improvement in renal parameters and also lower leg edema. The patient chart was reviewed and has been diagnosed with enlarged prostate and was being followed recently with the primary care physician who gave him urology appointment. The patient was not aware about his urology appointment therefore advised him to keep the Aldridge's since there is high risk of urinary retention and further worsening of renal parameters and severe hydronephrosis. Catheter care instructions were provided to the patient and discharged with urgent urology follow-up. Surgery follow-up also provided for repeat endoscopy in 4 to 6 weeks. Carafate to continue for better ulcer healing. Patient also informed in case of rebleeding the patient needs GI intervention however was stable during his stay. Patient provided gastroenterology referral as well The patient tolerated GI soft diet that we will continue postdischarge as well. There was no further drop in hemoglobin. Surgery cleared the patient for discharge Patient condition has been discussed at length with the patient/family, I have independently reviewed the chart labs imaging/diagnostics/EKG. the goals of care and code status with the patient/family/NOK/legal medical customer service representative, and documented accordingly. The patient/family has been informed about the current condition and further plan of care. Agreed with the plan of care and understood without any language barrier. Every effort was made to ensure accuracy of general expeditor. Any obvious errors or omissions should be clarified with the author of the document. Physical Exam Narrative: General: In no acute distress, at room air, alert oriented x 3, looks pale Neck: No jugular venous, no carotid bruit, or any swelling appreciated Heart: normal rate rythm, regular, systolic murmur grade 2/6 at the aortic area, no other heart sounds appreciated Lungs: Normal respiratory effort with no use of intercostal muscles, clear lungs sounds to auscultation Extremities: Bilateral lower extremity edema with some chronic ulceration, however improved relative to admission, on compression stockings. Neuro: Alert and oriented x 3 skin: pallor +marlee, normal capillary refill on folleys catheter and making adequate amount of urine Urinary Catheter Management: Aldridge: Cath Placed During This Visit: yes Urinary Catheter Date of Insertion: 03/16/25 Discharge Data Studies Completed and Pending Completed Studies During Hospitalization Category Date Time Status CT abdomen pelvis w con* [id number] Stat Cat Scan 03/16/25 15:[address] head wo con* [id number] Urgent Cat Scan 03/16/25 14:14 Completed XR chest 1V portable [id number] Stat Exams 03/16/25 14:14 Completed Pending at discharge Category Date Time Status Urine Culture Stat Lab 03/16/25 20:38 Results Pathology: Surgical [PTH] Routine Pth 03/17/25 08:35 Received Radiology Impressions Chest X-Ray 03/16/25 14:14 IMPRESSION: No acute chest abnormality. Mild cardiomegaly. Head CT 03/16/25 14:14 IMPRESSION: 1. No acute intracranial hemorrhage or edema. 2. Mild atrophy and small vessel disease. 3. Volume loss in the LEFT temporal lobe. Suspect there is a small infarct with encephalomalacia in the temporal lobe. Mild ex vacuo dilatation temporal horn of the lateral ventricle. 4. Prior lacunar infarcts, RIGHT hippocampus and internal capsule. Abdomen/Pelvis CT 03/16/25 15:26 IMPRESSION: 1. Paraduodenal collection of fluid and gas most likely representing duodenal bulb ulceration. Duodenal diverticulitis is an additional possibility. 2. Bilateral moderate to severe hydronephrosis consistent with bladder outlet obstruction. 3. Enlarged bladder containing an intraluminal calculus. Bladder outlet obstruction is suspected. 4. Enlarged and lobulated prostate gland. 5. Large left inguinal hernia containing a nonobstructed loop of colon. 6. 6 mm pancreatic cyst. Reimaging every 2 years for 10 years is recommended. (Reference: Julio, 2017) REFERENCES: Julio ROSADO, et al. Management of Incidental Pancreatic Cysts: A White Paper of the ACR Incidental Findings Committee. J Am Nitza Radiol. 2017;14(7):911-923. ADDENDUM: 03/16/251645 Findings were discussed with JOSIAH DU at 03/16/2025 4:45 PM CDT. Laboratory Results WBC 7.85 10^3/uL (3.29-11.43) 03/18/25 06:34 RBC 2.51 10^6/uL (3.85-5.65) L 03/18/25 06:34 Hgb 7.30 g/dL (11.27-16.99) L 03/18/25 06:34 Hct 22.9 % (37-53) L 03/18/25 06:34 MCV 91.2 fl (82-101) 03/18/25 06:34 MCH 29.1 pg (27-33) 03/18/25 06:34 MCHC 31.9 g/dL (30-55) 03/18/25 06:34 RDW 14.0 % (12.1-15.1) 03/18/25 06:34 Plt Count 216 10^3/cmm (157-399) 03/18/25 06:34 MPV 10.2 fL (7.4-10.4) 03/18/25 06:34 Neut % (Auto) 72.0 % 03/18/25 06:34 Lymph % (Auto) 14.3 % 03/18/25 06:34 Slope % (Auto) 9.4 % 03/18/25 06:34 Eos % (Auto) 3.3 % 03/18/25 06:34 Baso % (Auto) 0.5 % 03/18/25 06:34 Neut # (Auto) 5.65 10^3/uL (1.8-7.7) 03/18/25 06:34 Lymph # (Auto) 1.1 10^3/uL (0.8-4.8) 03/18/25 06:34 Slope # (Auto) 0.7 10^3/uL (0.2-0.9) 03/18/25 06:34 Eos # (Auto) 0.3 10^3/uL (0.0-0.8) 03/18/25 06:34 Baso # (Auto) 0.0 10^3/uL (0.0-0.1) 03/18/25 06:34 Nucleated RBC % (auto) 0 % 03/18/25 06:34 Nucleated RBCs # 0.0 /100WBC 03/18/25 06:34 Sodium 140 mmol/L (136-145) 03/18/25 06:34 Potassium 3.6 mmol/L (3.5-5.1) 03/18/25 06:34 Chloride 102 mmol/L (98-107) 03/18/25 06:34 Carbon Dioxide 27 mmol/L (22-29) 03/18/25 06:34 Anion Gap 14.6 (5-19) 03/18/25 06:34 BUN 28 mg/dL (8-23) H 03/18/25 06:34 Creatinine 2.5 mg/dL (0.7-1.2) H 03/18/25 06:34 GFR Calculation Not Reportable 03/18/25 06:34 Glucose 134 mg/dL (65-115) H 03/18/25 06:34 Calculated Osmolality 297 mOsm/kg (285-295) H 03/18/25 06:34 Calcium 8.1 mg/dL (8.5-10.5) L 03/18/25 06:34 Magnesium 2.4 mg/dL (1.7-2.3) H 03/16/25 14:20 Total Bilirubin 0.8 mg/dL (0.15-1.2) 03/17/25 09:47 AST 10 U/L (0-40) 03/17/25 09:47 ALT 9 U/L (0-41) 03/17/25 09:47 Alkaline Phosphatase 91 U/L (40-130) 03/17/25 09:47 Troponin T Baseline 43 ng/L (0-15) H 03/16/25 14:20 Troponin T 120 Minute 37.54 ng/L (0-15) H 03/16/25 16:04 Delta Troponin T -5.46 ABS# (0-10) L 03/16/25 16:04 Troponin T Hi Sens 6Hr 41.57 ng/L (0-15) H 03/16/25 22:38 Troponin T Hi Sens 6Hr Delta -1.43 ng/L (0-12) L 03/16/25 22:38 NT-Pro-B Natriuret Pep 7242 pg/mL (0-450) H 03/16/25 14:20 Total Protein 5.9 g/dL (6.6-8.7) L 03/17/25 09:47 Albumin 3.3 g/dL (3.5-5.2) L 03/17/25 09:47 Globulin 2.6 g/dL (1.3-4.6) 03/17/25 09:47 Urine Color Yellow (Yellow) 03/16/25 20:38 Urine Appearance Cloudy (CLEAR) A 03/16/25 20:38 Urine pH 6.5 (5-7) 03/16/25 20:38 Ur Specific [place] 1.011 (1.005-1.030) 03/16/25 20:38 Urine Protein 2+ (Negative) A 03/16/25 20:38 Urine Glucose (UA) Negative (Normal) 03/16/25 20:38 Urine Ketones Negative (Negative) 03/16/25 20:38 Urine Blood 3+ (Negative) A 03/16/25 20:38 Urine Nitrate Negative (Negative) 03/16/25 20:38 Urine Bilirubin Negative (Negative) 03/16/25 20:38 Urine Urobilinogen 0.2 mg/dL (Negative) 03/16/25 20:38 Ur Leukocyte Esterase Trace (Negative) A 03/16/25 20:38 Urine RBC >100 /hpf (0-2) H 03/16/25 20:38 Urine WBC 6-10 /hpf (0-5) 03/16/25 20:38 Ur Squamous Epith Cells 0-5 /hpf (0-5) 03/16/25 20:38 Amorphous Sediment Not Reportable 03/16/25 20:38 Urine Bacteria None seen /hpf (NONE) 03/16/25 20:38 Hyaline Casts 1.21 /lpf 03/16/25 20:38 Influenza A (PCR) Negative (Negative) 03/16/25 14:23 Influenza Type B (PCR) Negative (Negative) 03/16/25 14:23 RSV (PCR) Negative (Negative) 03/16/25 14:23 SARS-CoV-2 (PCR) Negative (Negative) 03/16/25 14:23 Blood Type A Positive 03/16/25 14:48 Rho(D) Type Rh positive 03/16/25 14:48 Antibody Screen Negative 03/16/25 14:48 Crossmatch See Detail 03/16/25 14:48 Vitals Last Vital Signs Temp 97.9 F 03/18/25 07:54 Pulse 84 03/18/25 07:54 Resp 15 03/18/25 07:54 BP 164/75 03/18/25 07:54 Pulse Ox 98 03/18/25 07:54 O2 Del Method Room Air 03/18/25 04:30 Discharge Plan Discharge Patient Disposition: Home Condition: Stable Prescriptions: New pantoprazole 40 mg tablet,delayed release (DR/EC) 40 mg PO BID 90 Days Qty: 180 0RF sucralfate 100 mg/mL Suspension 1 g PO AC&BEDTIME 60 Days Qty: 5000 0RF tamsulosin 0.4 mg Capsule 0.4 mg PO DAILY 90 Days Qty: 90 0RF lidocaine HCl 2 % Solution 1 ml topical PRN PRN (Reason: Anesthetic prior to IV start) 30 Days Qty: 300 0RF Continued furosemide [Lasix] 40 mg tablet 40 mg PO BID PRN (Reason: Edema) hydralazine 25 mg tablet 25 mg PO TID Qty: 90 2RF carvedilol 6.25 mg tablet 6.25 mg PO BID Qty: 60 5RF Rx Instructions: must administer with a meal/food mirtazapine 7.5 mg tablet 7.5 mg PO DAILY PRN (Reason: insomnia, low appetite) Qty: 30 2RF potassium chloride 10 mEq capsule, extended release 10 meq PO DAILY mupirocin 2 % ointment 1 applic topical BID PRN (Reason: Skin Irritation) Discharge Order = DC NOW: Discharge Order (Routine); Ordered 03/18/25 Ordered By: Israel Harley Other Ambulatory Orders: Complete Blood Count w/Auto (Routine) Timeframe: 2 Days Location: Determined by Patient Ordered By: Israel Harley Referrals: Urban Spangler [Referring, Urology] - 03/25/25 1:00 pm Referral Note: Bladder outlet obstruction with indwelling Aldridge's catheter, patient having post renal Jalen Duarte DO [Primary Care Provider, Family Practice] - 03/24/25 10:45 am Josiah Ross MD [Physician, General Surgery] - 04/01/25 8:40 am Referral Note: Post endoscopy Followup for re-endoscopy large duodenal ulcer [facility] [Outside] - 7-10 days Referral Note: History of large duodenal ulcer status post endoscopy with significant anemia for further management and plan of care Discharge Diet: GI Soft Discharge Activity: Resume usual activity and Increase activity as tolerated Patient Instructions: Sucralfate (By mouth), Lidocaine (On the skin), Tamsulosin (By mouth), Pantoprazole (By mouth), GI Post Discharge Instructions w/ Anesthesia, Opioid Safety, Patient Portal & James Instructions Discharge Attestations Time Spent in Discharge Care*: greater than 30 min Specific Discharge Activities: educating patient, educating and/or supporting family/caregiver, discussing with pcp/other providers, discussing with residential case manager/social workers/dc planners, documenting/other paperwork and evaluating patient/reviewing data Status at Discharge: Cognitive status at discharge: cognitively intact , Behavioral status at discharge: cooperative , Functional status at discharge: independent ambulation , Overall status at discharge: patient is back to baseline Quality Metrics Clinical Quality Measures [ No reported AMI, CVA or VTE this stay] Coding Level of Care Code 06113 Diagnoses Duodenal ulcer hemorrhage K26.4
[2025-03-18 14:42] VITALS: BP 140/83; PULSE 80; O2SAT 96
--- NOTE | 2025-03-18 15:09 | PC.NURSE ---
Patient was insistent that his dewey be removed prior to discharge. He states I do not want to carry that around. I just want to go like normal. . Provider is updated.
== END 2025-03-18 15:48 | disposition home or self-care (01) | DRG 811 ==
LOC: ER 16:09 → CSU 16:19
PROVIDERS: Surgery; Admitting Provider Student in an Organized Health Care Education/Training Program; Emergency Provider Physician Assistant; PCP Family Medicine; Visit Provider Student in an Organized Health Care Education/Training Program
PROC: 0DJ08ZZ Inspection of Upper Intestinal Tract, Via Natural or Artificial Opening Endoscopic (ICD-10-PCS; principal; 2025-03-17 07:15)
DX: D62 Acute posthemorrhagic anemia (principal); K26.4 Chronic or unspecified duodenal ulcer with hemorrhage; N18.4 Chronic kidney disease, stage 4 (severe); I35.0 Nonrheumatic aortic (valve) stenosis; I12.9 Hypertensive chronic kidney disease with stage 1 through stage 4 chronic kidney disease, or unspecified chronic kidney disease; N32.0 Bladder-neck obstruction; N21.0 Calculus in bladder; R06.00 Dyspnea, unspecified; R97.20 Elevated prostate specific antigen [PSA]; R60.0 Localized edema
CPT/HCPCS: 36415; 36430; 43239; 51702; 70450; 71045; 74177; 80048; 80053; 81001; 83735; 83880; 84484; 85025; 86850; 86900; 86920; 87086; 87637; 88305; 93005; 99285; J2470; J2704; J7030; J7050; J7120; J9999; P9016; Q0163

== ENCOUNTER → 2025-03-24 11:25 | Outpatient (BNVA) | payer MEDICARE, SELFPAY | PROVIDERS: PCP Family Medicine; Visit Provider Family Medicine | DX: D50.0 Iron deficiency anemia secondary to blood loss (chronic) (principal); K26.4 Chronic or unspecified duodenal ulcer with hemorrhage | CPT/HCPCS: 85025 ==

== ENCOUNTER → 2025-04-13 11:30 | Outpatient (BNVA) | payer MEDICARE, SELFPAY | PROVIDERS: PCP Family Medicine; Visit Provider Family Medicine | DX: E87.6 Hypokalemia (principal); N13.30 Unspecified hydronephrosis; N18.4 Chronic kidney disease, stage 4 (severe); D50.0 Iron deficiency anemia secondary to blood loss (chronic) | CPT/HCPCS: 80048; 85025 ==

== ENCOUNTER → 2025-06-11 10:37 | Outpatient (BNVA) | payer MEDICARE, OTHER, SELFPAY | PROVIDERS: PCP Family Medicine; Visit Provider Internal Medicine Cardiovascular Disease | DX: I12.9 Hypertensive chronic kidney disease with stage 1 through stage 4 chronic kidney disease, or unspecified chronic kidney disease (principal); N18.4 Chronic kidney disease, stage 4 (severe); I35.0 Nonrheumatic aortic (valve) stenosis; I49.1 Atrial premature depolarization; R60.0 Localized edema; I10 Essential (primary) hypertension; R06.09 Other forms of dyspnea | CPT/HCPCS: 99214 ==

== ENCOUNTER → 2025-06-15 13:15 | Outpatient (BNVA) | payer MEDICARE, OTHER, SELFPAY | PROVIDERS: PCP Family Medicine; Visit Provider Family Medicine | DX: E87.6 Hypokalemia (principal); I50.9 Heart failure, unspecified; I48.91 Unspecified atrial fibrillation; R06.09 Other forms of dyspnea; R73.9 Hyperglycemia, unspecified | CPT/HCPCS: 80048; 83036; 83880; 85025 ==

== ENCOUNTER → 2025-06-18 13:47 | Outpatient (BNVA) | payer MEDICARE, OTHER, SELFPAY | PROVIDERS: PCP Family Medicine; Visit Provider Thoracic Surgery (Cardiothoracic Vascular Surgery) | DX: I96 Gangrene, not elsewhere classified (principal); I87.2 Venous insufficiency (chronic) (peripheral); L97.812 Non-pressure chronic ulcer of other part of right lower leg with fat layer exposed; L97.821 Non-pressure chronic ulcer of other part of left lower leg limited to breakdown of skin | CPT/HCPCS: 11042; 97597; 99213; A6252 ==

== ENCOUNTER → 2025-06-22 08:30 | Outpatient (BNVA) | payer MEDICARE, OTHER, SELFPAY | PROVIDERS: PCP Family Medicine; Visit Provider Family Medicine | DX: E87.6 Hypokalemia (principal); T50.2X5A Adverse effect of carbonic-anhydrase inhibitors, benzothiadiazides and other diuretics, initial encounter; R79.0 Abnormal level of blood mineral; X58.XXXA Exposure to other specified factors, initial encounter | CPT/HCPCS: 80048; 83735 ==

== ENCOUNTER 2025-06-28 14:50 | Inpatient (IN) | payer MEDICARE, OTHER, SELFPAY ==
[2025-06-28] VITALS (7 sets, daily range): BP systolic 143–199; BP diastolic 65–117; PULSE 77–99; RESP 19–20; TEMP 36.5–37.6; O2SAT 92–96; BMI 27.1
--- OUTSIDE RECORDS SUMMARY | 2025-06-28 14:55 | XMS_ITS | Patient Health Record ---
Author Organization [facility] [place] Address [address] [place] [address] Care Team Providers Care Snake Charmer Name Role Phone Jalen Duarte DO Primary Care Provider Unavail able CARLO FINLEY Unavailable [phone] NALDO WECLH Unavailable [phone] Allergies No Known Allergies Results Component Value Reference Range Flag Notes Basic Metabolic Panel Reviewed date:04/08/2025 09:46:19 AM Interpretation: Performing Lab: Notes/Report: Testing performed at [facility], [address] [place] [address] [place] [address]. CLIA ID#: [id number] A-qmvpac-j-benzoquinone imine (NAPQI) is a metabolite of acetaminophen, NAPQI concentrations of apparoximately 10 mg/L correlation to toxic levels of acetaminophen demonstrates a greater than or equil to 10% change in results. NAPQI concentrations greater than this may lead to falsely depressed results for patient samples. Calculation performed from GFR calculator provided by the [employer]. Glomerular Filtration rate(GRF) is the best overall index of kidney function. Normal GFR varies according to age,sex, body size, and declines with age. The National Kidney Foundation recommends using the CKD-EPI Creatinine Equation(2020) to estimate GFR. Testing performed at: [address] [place] [address] CLIA ID [id number] Use of this assay is not recommended for patients undergoing treatment with phenindione, due to the potential for falsely depressed results. Sodium 138 136-145 MMOL/L Potassium 3.9 3.5-5.1 MMOL/L Chloride 98 98-107 MMOL/L CO2 30.0 20.0-31.0 MMOL/L Glucose Serum 131 71-110 MG/DL HI BUN 29 7-21 MG/DL HI Creat 2.04 .57-1.17 MG/DL HI GFR 32.3 NA Anion Gap 14 5-15 BUN/Creat Ratio 14.2 12.0-20.0 % Calcium 9.1 8.7-10.4 MG/DL Osmo Serum,Calculated 294 280-300 MOSM/KG CBC w/ Auto Diff Reviewed date:04/08/2025 09:46:19 AM Interpretation: Performing Lab: Notes/Report: Testing performed at: [address] [place] [address] CLIA ID [id number] WBC 7.6 4.5-11.0 X10'3 RBC 2.85 4.50-5.90 X10'6 LOW Hgb 8.1 13.5-17.5 G/DL LOW Hct 26.4 41.0-53.0 % LOW MCV 92.6 80.0-100.0 FL MCH 28.4 27.0-31.0 PG MCHC 30.7 31.0-37.0 G/DL LOW Platelet 276 150-400 X10'3 RDW-SD 47.0 35.0-49.0 FL RDW-CV 13.6 12.2-15.6 % MPV 10.7 9.2-12.0 FL Neutro Auto% 69.0 40.0-70.0 % Lymph Auto% 17.8 22.0-44.0 % LOW [place] Auto% 7.3 3.0-7.0 % HI Eos Auto% 4.8 2.0-4.0 % HI Baso Auto% 1.0 0.0-1.0 % Imm Gran% .1 .0-.4 % Neutro Abs 5.27 .80-7.70 Absolute Neutrophil Count 5270 NA Lymph Abs 1.36 .10-4.10 [place] Abs .56 .20-1.00 Eos Abs .37 .00-.40 Baso Abs .08 .00-.20 Imm Gran Abs .01 .00-.10 NRBC# .00 .00-.20 NRBC% .00 .00-.20 /100 intact WBC's Urinalysis, Routine Reviewed date:04/02/2025 01:47:12 PM Interpretation: Performing Lab: Notes/Report: Urine-Color yellow Appearance cloudy Glucose - Bilirubin - Ketones - Specific [place] 1.010 Occult Blood 2+ pH 6.0 Urine Protein 2+ Urobilinogen,Semi-Qn - Nitrite, Urine - WBC Esterase 3+ Urinalysis, Routine Reviewed date:03/25/2025 02:05:52 PM Interpretation: Performing Lab: Notes/Report: Urine-Color yellow Appearance cloudy Glucose - Bilirubin - Ketones - Specific [place] 1.005 Occult Blood - pH 6.0 Urine Protein - Urobilinogen,Semi-Qn - Nitrite, Urine - WBC Esterase - Reason For Referral No Information Medications Medication SIG (Take, Route, Frequency, Duration) Notes Start Date End Date Status Carvedilol 6.25 MG Tablet 1 tablet with food Orally Twice a day Active hydrALAZINE HCl 25 MG Tablet 1 tablet with food Orally Twice a day Active Mirtazapine 7.5 MG Tablet 1 tablet at bedtime Orally Once a day Active Furosemide 40 MG Tablet 1 tablet Orally Once a day Active Mupirocin 2 % Ointment 1 application Ext ernally Twice a day Not-Taking Potassium 99 MG Tablet 1 tablet Orally O nce a day Active Social History Tobacco Use: Social History Observation Description Date Details (start date - stop date) Never Smoker NA - NA Social History Drug/Alcohol: Social Info Question Answer Notes Drugs Have you used drugs other than those for medical reasons in the past 12 months? No Tobacco Use: Social Info Question Answer Notes Tobacco Control (Standard) Tobacco use: Nonsmoker Additional Details Category Social Info Options Details Drug/Alcohol: Do you smoke marijuana? Den ies Problems Problem Type SNOMED Code ICD Code Onset Dates Problem Status W/U Status Risk Notes Problem Lower urinary tract symptoms due to benign prostatic hypertrophy (62235625831716) Benign prostatic hyperplasia with lower urinary tract symptoms (N40.1) Active confirmed Problem Catheterization of urinary bladder (712258137) Dewey catheter in place (Z96.0) Active confirmed Problem Enlarged prostate (692603541) Enlarged prostate (N40.0) Active confirmed Problem History of recen t hospitalization (Z92.89) Active confirmed Problem Removal of urinary bladder catheter (procedure) (42426794) Encounter for Dewey catheter removal (Z46.6) Active confirmed Problem Bladder stone (38706094) Bladder stone (N21.0) Active confirmed Problem Bilateral hydronephrosis (86241159) Bilateral hydronephrosis (N13.30) Active confirmed Problem Urinary retention (497537752) Urinary retention (R33.9) Active confirmed Vital Signs Heart Rate 68 /min 04/30/2025 Height-cm 182.88 cm 04/30/2025 Blood pressure diastolic 50 mm Hg 04/30/2025 Weight-kg 90.72 kg 04/30/2025 Height 72 in 04/30/2025 Blood pressure systolic 120 mm Hg 04/30/2025 Weight 200 lbs 04/30/2025 BMI 27.12 kg/m2 04/30/2025 Procedures Procedure Date Ordered Date Performed Result Body Sit e Bladder Scan 03/25/2025 N/A Catheter Insertion-Routine 03/25/2025 03/26/2025 N/A Voiding Trial 04/30/2025 04/30/2025 N/A Encounters Encounter Location Date Provider Diagnosis [facility] [address] [address] 03/25/2025 NALDO REBEKAH Urinary retention R3 3.9 ; Establishing care with new doctor, encounter for Z76.89 ; Bilateral hydronephrosis N13.30 ; Enlarged prostate N40.0 ; Bladder stone N21.0 ; Elevated PSA R97.20 and History of recent hospitalization Z92.89 [facility] [address] [place] [address] 04/02/2025 CARLO CASTANONER Enlarged prostate N4 0.0 ; Urinary retention R33.9 ; Bilateral hydronephrosis N13.30 ; Bladder stone N21.0 ; Elevated PSA R97.20 ; History of recent hospitalization Z92.89 and Benign prostatic hyperplasia with lower urinary tract symptoms N40.1 [facility] [address] [place] [address] 04/14/2025 CARLO CASTANONER Bladder stone N21.0 [facility] [address] [place] [address] 04/30/2025 CARLO CASTANONER Enlarged prostate N4 0.0 ; Urinary retention R33.9 ; Bilateral hydronephrosis N13.30 ; Bladder stone N21.0 ; Elevated PSA R97.20 ; History of recent hospitalization Z92.89 ; Benign prostatic hyperplasia with lower urinary tract symptoms N40.1 and Catheter (urine) change required Z46.6 [facility], [facility] [address] [place] [address] 03/18/2025 CARLO FINLEY [facility] [address] [place] [address] 03/26/2025 CARLO FINLEY [facility] [address] [place] [address] 04/03/2025 CARLO CASTANONER [facility], [facility] [address] [place] [address] 04/03/2025 CARLO FINLEY Bilateral hydronephr osis N13.30 ; Pre-op testing Z01.818 and Preop testing Z01.818 Assessments Encounter Date Diagnosis (ICD Code) Assessment Notes Treatment Notes Treatment Clinical Notes Section Notes 03/25/2025 Establishing care with new doctor, encounter for (ICD-10 - Z76.89) 03/25/2025 Urinary retention (ICD-10 - R33.9) 04/03/2025 Bilateral hydronephrosis (ICD-10 - N13.30) 04/14/2025 Bladder stone (ICD-10 - N21.0) 04/30/2025 Enlarged prostate (ICD-10 - N40.0) 1. Calculus of bladder, removed - N21.0 2. Benign prostatic hyperplasia with urinary obstruction - N40.1 3. History of urinary catheterization - Z96.0 4. Gastric ulcer - K25.9 This is a 79-year-old male status post cystolitholapaxy for bladder stone on 04/14/2025, now presenting for catheter removal and follow-up. Patient has underlying BPH with urinary obstruction that likely contributed to stone formation. 04/30/2025 Urinary retention (ICD-10 - R33.9) 1. Calculus of bladder, removed - N21.0 2. Benign prostatic hyperplasia with urinary obstruction - N40.1 3. History of urinary catheterization - Z96.0 4. Gastric ulcer - K25.9 This is a 79-year-old male status post cystolitholapaxy for bladder stone on 04/14/2025, now presenting for catheter removal and follow-up. Patient has underlying BPH with urinary obstruction that likely contributed to stone formation. 04/02/2025 Enlarged prostate (ICD-10 - N40.0) 79 yo male with BPH, urinary retention, bladder stone and bilateral hydro. Cysto shows large bladder stone and very large trilobar obstructing prostate. I recommend bladder stone removal in the OR. I recommend replacing dewey until surgery. How procedure is performed was reviewed along with risks, benefits, alternatives, and postprocedural expectations. All questions were sought and answered to pt satisfaction and pt is agreeable to proceed. Will schedule next available. Plan: schedule cystolithalopaxy with laser at [facility] continue indwelling dewey until surgery 04/02/2025 Urinary retention (ICD-10 - R33.9) 79 yo male with BPH, urinary retention, bladder stone and bilateral hydro. Cysto shows large bladder stone and very large trilobar obstructing prostate. I recommend bladder stone removal in the OR. I recommend replacing dewey until surgery. How procedure is performed was reviewed along with risks, benefits, alternatives, and postprocedural expectations. All questions were sought and answered to pt satisfaction and pt is agreeable to proceed. Will schedule next available. Plan: schedule cystolithalopaxy with laser at [facility] continue indwelling dewey until surgery 04/02/2025 Bilateral hydronephrosis (ICD-10 - N13.30) 79 yo male with BPH, urinary retention, bladder stone and bilateral hydro. Cysto shows large bladder stone and very large trilobar obstructing prostate. I recommend bladder stone removal in the OR. I recommend replacing dewey until surgery. How procedure is performed was reviewed along with risks, benefits, alternatives, and postprocedural expectations. All questions were sought and answered to pt satisfaction and pt is agreeable to proceed. Will schedule next available. Plan: schedule cystolithalopaxy with laser at [facility] continue indwelling dewey until surgery 04/30/2025 Bilateral hydronephrosis (ICD-10 - N13.30) 1. Calculus of bladder, removed - N21.0 2. Benign prostatic hyperplasia with urinary obstruction - N40.1 3. History of urinary catheterization - Z96.0 4. Gastric ulcer - K25.9 This is a 79-year-old male status post cystolitholapaxy for bladder stone on 04/14/2025, now presenting for catheter removal and follow-up. Patient has underlying BPH with urinary obstruction that likely contributed to stone formation. 03/25/2025 Bilateral hydronephrosis (ICD-10 - N13.30) 04/03/2025 Pre-op testing (ICD-10 - Z01.818) 04/03/2025 Preop testing (ICD-10 - Z01.818) 03/25/2025 Enlarged prostate (ICD-10 - N40.0) 04/30/2025 Bladder stone (ICD-10 - N21.0) 1. Calculus of bladder, removed - N21.0 2. Benign prostatic hyperplasia with urinary obstruction - N40.1 3. History of urinary catheterization - Z96.0 4. Gastric ulcer - K25.9 This is a 79-year-old male status post cystolitholapaxy for bladder stone on 04/14/2025, now presenting for catheter removal and follow-up. Patient has underlying BPH with urinary obstruction that likely contributed to stone formation. 04/02/2025 Bladder stone (ICD-10 - N21.0) 79 yo male with BPH, urinary retention, bladder stone and bilateral hydro. Cysto shows large bladder stone and very large trilobar obstructing prostate. I recommend bladder stone removal in the OR. I recommend replacing dewey until surgery. How procedure is performed was reviewed along with risks, benefits, alternatives, and postprocedural expectations. All questions were sought and answered to pt satisfaction and pt is agreeable to proceed. Will schedule next available. Plan: schedule cystolithalopaxy with laser at [facility] continue indwelling dewey until surgery 04/02/2025 Elevated PSA (ICD-10 - R97.20) 79 yo male with BPH, urinary retention, bladder stone and bilateral hydro. Cysto shows large bladder stone and very large trilobar obstructing prostate. I recommend bladder stone removal in the OR. I recommend replacing dewey until surgery. How procedure is performed was reviewed along with risks, benefits, alternatives, and postprocedural expectations. All questions were sought and answered to pt satisfaction and pt is agreeable to proceed. Will schedule next available. Plan: schedule cystolithalopaxy with laser at [facility] continue indwelling dewey until surgery 04/30/2025 Elevated PSA (ICD-10 - R97.20) 1. Calculus of bladder, removed - N21.0 2. Benign prostatic hyperplasia with urinary obstruction - N40.1 3. History of urinary catheterization - Z96.0 4. Gastric ulcer - K25.9 This is a 79-year-old male status post cystolitholapaxy for bladder stone on 04/14/2025, now presenting for catheter removal and follow-up. Patient has underlying BPH with urinary obstruction that likely contributed to stone formation. 03/25/2025 Bladder stone (ICD-10 - N21.0) 03/25/2025 Elevated PSA (ICD-10 - R97.20) 04/30/2025 History of recent hospitalization (ICD-10 - Z92.89) 1. Calculus of bladder, removed - N21.0 2. Benign prostatic hyperplasia with urinary obstruction - N40.1 3. History of urinary catheterization - Z96.0 4. Gastric ulcer - K25.9 This is a 79-year-old male status post cystolitholapaxy for bladder stone on 04/14/2025, now presenting for catheter removal and follow-up. Patient has underlying BPH with urinary obstruction that likely contributed to stone formation. 04/02/2025 History of recent hospitalization (ICD-10 - Z92.89) 79 yo male with BPH, urinary retention, bladder stone and bilateral hydro. Cysto shows large bladder stone and very large trilobar obstructing prostate. I recommend bladder stone removal in the OR. I recommend replacing dewey until surgery. How procedure is performed was reviewed along with risks, benefits, alternatives, and postprocedural expectations. All questions were sought and answered to pt satisfaction and pt is agreeable to proceed. Will schedule next available. Plan: schedule cystolithalopaxy with laser at [facility] continue indwelling dewey until surgery 04/02/2025 Benign prostatic hyperplasia with lower urinary tract symptoms (ICD-10 - N40.1) 79 yo male with BPH, urinary retention, bladder stone and bilateral hydro. Cysto shows large bladder stone and very large trilobar obstructing prostate. I recommend bladder stone removal in the OR. I recommend replacing dewey until surgery. How procedure is performed was reviewed along with risks, benefits, alternatives, and postprocedural expectations. All questions were sought and answered to pt satisfaction and pt is agreeable to proceed. Will schedule next available. Plan: schedule cystolithalopaxy with laser at [facility] continue indwelling dewey until surgery 04/30/2025 Benign prostatic hyperplasia with lower urinary tract symptoms (ICD-10 - N40.1) 1. Calculus of bladder, removed - N21.0 2. Benign prostatic hyperplasia with urinary obstruction - N40.1 3. History of urinary catheterization - Z96.0 4. Gastric ulcer - K25.9 This is a 79-year-old male status post cystolitholapaxy for bladder stone on 04/14/2025, now presenting for catheter removal and follow-up. Patient has underlying BPH with urinary obstruction that likely contributed to stone formation. 03/25/2025 History of recent hospitalization (ICD-10 - Z92.89) 04/30/2025 Catheter (urine) change required (ICD-10 - Z46.6) 1. Calculus of bladder, removed - N21.0 2. Benign prostatic hyperplasia with urinary obstruction - N40.1 3. History of urinary catheterization - Z96.0 4. Gastric ulcer - K25.9 This is a 79-year-old male status post cystolitholapaxy for bladder stone on 04/14/2025, now presenting for catheter removal and follow-up. Patient has underlying BPH with urinary obstruction that likely contributed to stone formation. 03/25/2025 Other UA clear, PVR 843ml. Replace Dewey catheter today, he defers CIC. Reviewed imaging which reveals [place] tree bladder and bladder stone. Discussed the need for cystoscopy to further evaluate anatomy, but he will likely need surgical intervention for prostate obstruction and/or a suprapubic catheter if his bladder is severely damaged as it appears on imaging to prevent further renal damage. He also has history of elevated PSA, so malignancy cannot be ruled out without biopsy. He is agreeable to proceed with cysto soonest available. 04/30/2025 Other # Benign Prostatic Hyperplasia with Urinary Obstruction Discussed need for TURP (transurethral resection of prostate) to address underlying prostatic obstruction that contributed to bladder stone formation and recurrent catheterizatio ns. Patient prefers to monitor symptoms for now after stone removal to see if urinary function improves. Follow-up in 8 weeks to reassess urinary symptoms and discuss TURP if indicated. Patient instructed to contact office immediately if unable to void or experiences urinary retention. # Status Post Cystolitholapa xy Catheter removed today. Patient reports excellent recovery with no pain medication required. Will continue to monitor for recurrence of stones. # Gastric Ulcer Currently asymptomatic. Patient may proceed with GI evaluation and potential procedure after urological issues are addressed. You had a follow-up visit today after your bladder stone removal procedure from two weeks ago. Your catheter was removed today. Your recovery is going well, and you have not needed pain medication. The bladder stone was successfully removed, but the underlying cause is likely your enlarged prostate. We discussed a procedure called TURP (transurethral resection of the prostate) that would help open up the channel through your prostate and improve your urinary flow. We agreed to wait and see how you do over the next 8 weeks before deciding on this procedure. Call our office right away if you cannot urinate or have severe pain. Otherwise, we will see you in 8 weeks to check your symptoms and discuss next steps. Continue taking your regular medications as prescribed. 1. Calculus of bladder, removed - N21.0 2. Benign prostatic hyperplasia with urinary obstruction - N40.1 3. History of urinary catheterization - Z96.0 4. Gastric ulcer - K25.9 This is a 79-year-old male status post cystolitholapaxy for bladder stone on 04/14/2025, now presenting for catheter removal and follow-up. Patient has underlying BPH with urinary obstruction that likely contributed to stone formation. Plan Of Treatment Pending Test Test Name Order Date Bladder Scan 03/25/2025 Culture Urine Reflex 04/03/2025 Electrocardiogram, 12 Lead Tracing-[id number] 04/03/2025 Next Appt Details Provider Name:CARLO Bryan, 07/06/2025 03:10:00 PM, [address] [place], [address], Insurance Providers Payer Name Payer Address Payer Phone Subscriber Number Group Number Insured Name Patient Relationship to Insured Coverage Start Date Coverage End Date [place] [address] CHRIS RAFFI PASTOR [id number] Leo Jung Self - patient is the insured [employer] [place] [address] [employer] [id number] [phone] [id number] Leo Jung Self - patient is the insured Medical (General) History Medical History History ICD Code HTN Bladder stone Enlarged prostate Anemia Peptic Ulcer Disease osteoarthritis Surgical History Surgery Date(Month/Year) left knee right hand reconstruction septum blood transfusion Hospitalization History Reason Date(Month/Year) see sx
--- NOTE | 2025-06-28 14:59 | ECG_ITS ---
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1945 Requested By: Benji Charlton Order Number: [id number] Reading MD: LUCA SORTO Measurements Intervals [place] Rate: 75 P: 105 IN: 231 QRS: 18 QRSD: 110 T: 56 QT: 418 QTc: 469 Interpretive Statements SINUS RHYTHM WITH FIRST DEGREE AV BLOCK WITH OCCASIONAL SUPRAVENTRICULAR PREMATURE COMPLEXES LEFT VENTRICULAR HYPERTROPHY AND ST-T CHANGE [VOLTAGE CRITERIA PLUS ST/T ABNORMALITY] Compared to ECG 03/16/2025 14:22:16 Left ventricular hypertrophy now present ST (T wave) deviation now present T-wave abnormality no longer present Electronically Signed On 06-28-2025 22:51:29 [employer] SUPERVISOR by LUCA SORTO [email or web address]
--- NOTE | 2025-06-28 14:59 | XRR_ITS ---
PROCEDURE INFORMATION: Exam: XR Chest Exam date and time: 06/28/2025 3:26 PM Age: 79 years old Clinical indication: Shortness of breath; Additional Info: SOB TECHNIQUE: Imaging protocol: Radiologic exam of the chest. Views: 1 view. COMPARISON: CT abdomen pelvis w con* [id number] 03/16/2025 3:51 PM FINDINGS: Lungs: Flattened diaphragms and pulmonary hyperlucency suggests likelihood of COPD. Pulmonary vascularity is normal. Some interstitial septal thickening in the lung bases as well as some dependent atelectasis and fibrotic changes. Pleural spaces: Probable posttraumatic pleural thickening in the right lower chest. Blunting of the left costophrenic angle which is probably old scarring. Heart/Mediastinum: Mild cardiomegaly is noted. Vasculature: Mild aortic arch atherosclerosis. Bones/joints: Some deformity in the ribcage the right upper chest with evidence of old fractures. This is likely posttraumatic. Old fracture of the right clavicle. The spine demonstrates mild degenerative changes at multiple levels. XR/XR chest 1V portable [id number] IMPRESSION: 1. Probable COPD. 2. Mild interstitial fibrotic changes in the lung bases. 3. Old fractures in the right upper chest. 4. Probable posttraumatic pleural thickening in the right lower chest.
[2025-06-28 15:29] LABS: Hematocrit 32.3 % (37-53); Hemoglobin 10.10 g/dL (11.27-16.99); Mean Corpuscular HGB Conc 31.3 g/dL (30-55); Mean Corpuscular Hemoglobin 27.9 pg (27-33); Mean Corpuscular Volume 89.2 fl (82-101); Nucleated Red Blood Cells % 0 %; Platelet Count 190 10^3/cmm (157-399); Red Blood Count 3.62 10^6/uL (3.85-5.65); White Blood Count 9.65 10^3/uL (3.29-11.43)
--- NOTE | 2025-06-28 15:39 | W.ED.SOB ---
HPI - SOB/Dyspnea General: Chief Complaint: Shortness of Breath/Dyspnea Stated Complaint: weakness, sob, no appetite Time Seen by Provider: 06/28/25 15:13 Source: patient Mode of arrival: ambulatory Limitations: no limitations History of Present Illness: HPI Narrative: 79-year-old male states over the last 3 days has been having low-grade fevers chills along with cough and shortness of breath. Patient here is hypoxic at 70% he is requiring 4 L oxygen here denies any history of oxygen use. Does have a history of some heart failure. He denies any chest pain denies any vomiting or diarrhea Related Data Home Medications ?Medication ?Instructions ?Recorded ?Confirmed Zicam Nasal [place] 2 - 3 spray intranasal Q12H PRN 06/28/25 06/28/25 Congestion furosemide 40 mg tablet (Lasix) 40 mg PO .QOD PRN Edema 06/28/25 06/28/25 pantoprazole 40 mg tablet,delayed 40 mg PO DAILY 06/28/25 06/28/25 release potassium chloride 10 mEq 10 meq PO .QOD 06/28/25 06/28/25 capsule,extended release Previous Rx's ?Medication ?Instructions ?Recorded carvedilol 6.25 mg tablet 6.25 mg PO BID #60 tabs 02/02/25 mirtazapine 7.5 mg tablet 7.5 mg PO DAILY PRN insomnia, low 02/02/25 appetite #30 tabs docusate sodium 100 mg capsule 100 mg PO BID PRN constipation #60 04/13/25 caps hydralazine 50 mg tablet 50 mg PO TID #270 tabs 06/11/25 mupirocin 2 % topical ointment 1 applic topical BID PRN Skin 06/15/25 Irritation #22 grams apixaban 2.5 mg tablet (Eliquis) 2.5 mg PO BID #60 tabs 06/22/25 spironolactone 50 mg tablet 50 mg PO DAILY #60 tabs 06/22/25 Allergies Allergy/AdvReac Type Severity Reaction Status Date / Time Tetanus Vaccines and Toxoid Allergy Unknown Verified 06/28/25 15:09 Review of Systems Resp: Reports: dyspnea PFSH ED PFSH: Medical History Stage 4 chronic kidney disease Upper GI bleed Atrial fibrillation, unspecified type Aortic valve stenosis Acute heart failure, unspecified heart failure type Essential hypertension Social History Smoking and tobacco/nicotine status: never used tobacco/nicotine Physical Exam Const: COMMON NORMALS: no acute distress, patient oriented x3 and healthy appearing HENMT: COMMON NORMALS: normocephalic and atraumatic HEAD & SCALP: normocephalic and atraumatic Neck/C-Spine: COMMON NORMALS: full ROM and supple Chest: COMMONS NORMALS: normal inspection of the chest Resp: COMMON NORMALS: No retractions and No use of accessory muscles OTHER: Rales noted in bilateral lungs Cardio: COMMON NORMALS: regular rate, regular rhythm and No murmurs present (Cardio) RATE: regular rate RHYTHM: regular rhythm GI: COMMON NORMALS: Normal to inspection, nondistended, normoactive bowel sounds present, Soft to palpation, non-tender and no masses PALPATION: Yes Soft to palpation Extremity: COMMON NORMALS: normal to inspection and full ROM Neuro: COMMON NORMALS: patient oriented x3, moves all extremities and no focal motor deficits Psych: COMMON NORMALS: mental status grossly normal, Normal thought process present and cooperative THOUGHT PROCESS: Normal thought process present Skin: COMMON NORMALS: no rashes or lesions noted and no wounds GENERAL SKIN EXAM: no rashes or lesions noted Course Vital Signs: Vital signs: Vital Signs Temperature 99.7 F H 06/28/25 14:54 Pulse Rate 93 06/28/25 14:54 Respiratory Rate 20 H 06/28/25 14:54 Blood Pressure 193/84 06/28/25 14:54 Pulse Oximetry 92 06/28/25 14:54 Oxygen Delivery Me thod Nasal Cannula 06/28/25 14:54 Oxygen Flow Rate 3 06/28/25 14:54 MDM - SOB/Dyspnea Medical Decision Making 79-year-old male presents here with shortness of breath differential includes viral infection, pneumonia, pulm emboli, CHF. Chest x-ray here showed no definite pneumonia he did test positive for COVID likely causing his shortness of breath and hypoxia. Patient is requiring 4 L of oxygen here was able to turn him down to 3 L. Did give him IV antibiotics did give him a small fluid bolus but not a full sepsis bolus as he does have a history of CHF and his BNP was actually elevated from his baseline here and would do more harm than good with fluids. Did give him a dose of Decadron he has been in no distress here on the 3 L I did speak to hospitalist Dr. Ramires and will admit at this time EKG interpreted by me at 153 9 normal sinus rhythm heart rate [address] elevation QRS 110 QTc 447 Medical Records I reviewed the patient's medical records. Lab Data I reviewed the patient's lab results. 06/28/25 15:22 06/28/25 15:22 Labs/Radiology: Radiology Impressions Chest X-Ray 06/28/25 14:59 IMPRESSION: 1. Probable COPD. 2. Mild interstitial fibrotic changes in the lung bases. 3. Old fractures in the right upper chest. 4. Probable posttraumatic pleural thickening in the right lower chest. Laboratory Results WBC 9.65 10^3/uL (3.29-11.43) 06/28/25 15:22 RBC 3.62 10^6/uL (3.85-5.65) L 06/28/25 15:22 Hgb 10.10 g/dL (11.27-16.99) L 06/28/25 15:22 Hct 32.3 % (37-53) L 06/28/25 15:22 MCV 89.2 fl (82-101) 06/28/25 15:22 MCH 27.9 pg (27-33) 06/28/25 15:22 MCHC 31.3 g/dL (30-55) 06/28/25 15:22 RDW 15.8 % (12.1-15.1) H 06/28/25 15:22 Plt Count 190 10^3/cmm (157-399) 06/28/25 15:22 MPV 11.5 fL (7.4-10.4) H 06/28/25 15:22 Neut % (Auto) 83.2 % 06/28/25 15:22 Lymph % (Auto) 8.4 % 06/28/25 15:22 [place] % (Auto) 7.9 % 06/28/25 15:22 Eos % (Auto) 0.0 % 06/28/25 15:22 Baso % (Auto) 0.2 % 06/28/25 15:22 Neut # (Auto) 8.03 10^3/uL (1.8-7.7) H 06/28/25 15:22 Lymph # (Auto) 0.8 10^3/uL (0.8-4.8) 06/28/25 15:22 [place] # (Auto) 0.8 10^3/uL (0.2-0.9) 06/28/25 15:22 Eos # (Auto) 0.0 10^3/uL (0.0-0.8) 06/28/25 15:22 Baso # (Auto) 0.0 10^3/uL (0.0-0.1) 06/28/25 15:22 Nucleated RBC % (auto) 0 % 06/28/25 15:22 Nucleated RBCs # 0.0 /100WBC 06/28/25 15:22 Sodium 144 mmol/L (136-145) 06/28/25 15:22 Potassium 3.4 mmol/L (3.5-5.1) L 06/28/25 15:22 Chloride 101 mmol/L (98-107) 06/28/25 15:22 Carbon Dioxide 26 mmol/L (22-29) 06/28/25 15:22 Anion Gap 20.4 (5-19) H 06/28/25 15:22 BUN 24 mg/dL (8-23) H 06/28/25 15:22 Creatinine 1.7 mg/dL (0.7-1.2) H 06/28/25 15:22 GFR Calculation Not Reportable 06/28/25 15:22 Glucose 136 mg/dL (65-115) H 06/28/25 15:22 Calculated Osmolality 304 mOsm/kg (285-295) H 06/28/25 15:22 Lactic Acid 1.6 mmol/L (0.5-2.2) 06/28/25 15:20 Calcium 8.7 mg/dL (8.5-10.5) 06/28/25 15:22 Total Bilirubin 1.4 mg/dL (0.15-1.2) H 06/28/25 15:22 AST 22 U/L (0-40) 06/28/25 15:22 ALT 13 U/L (0-41) 06/28/25 15:22 Alkaline Phosphatase 109 U/L (40-130) 06/28/25 15:22 NT-Pro-B Natriuret Pep 91971 pg/mL (0-450) H 06/28/25 15:22 Total Protein 6.8 g/dL (6.6-8.7) 06/28/25 15:22 Albumin 4.1 g/dL (3.5-5.2) 06/28/25 15:22 Globulin 2.7 g/dL (1.3-4.6) 06/28/25 15:22 Influenza A (PCR) Negative (Negative) 06/28/25 15:25 Influenza Type B (PCR) Negative (Negative) 06/28/25 15:25 RSV (PCR) Negative (Negative) 06/28/25 15:25 SARS-CoV-2 (PCR) Positive (Negative) A 06/28/25 15:25 All radiology interpretation(s) finalized by discharge Discharge Plan Discharge Patient Disposition: Admitted As Inpatient Clinical Impression: COVID-19, Acute respiratory failure with hypoxia, CHF (congestive heart failure) Condition: Stable Coding Level of Care Code ED Blueprint Clerk for Mercedes Hickey
[2025-06-28 15:44] LABS: Lactic Sepsis W/Reflex 1.6 mmol/L (0.5-2.2)
[2025-06-28 15:55] LABS: Alanine Aminotransferase 13 U/L (0-41); Albumin Level 4.1 g/dL (3.5-5.2); Alkaline Phosphatase 109 U/L (40-130); Anion Gap 20.4 (5-19); Aspartate Amino Transferase 22 U/L (0-40); Blood Urea Nitrogen 24 mg/dL (8-23); Calcium 8.7 mg/dL (8.5-10.5); Carbon Dioxide 26 mmol/L (22-29); Chloride 101 mmol/L (98-107); Globulin 2.7 g/dL (1.3-4.6); Glucose 136 mg/dL (65-115); Osmolality Calculated 304 mOsm/kg (285-295); Potassium 3.4 mmol/L (3.5-5.1); Sodium 144 mmol/L (136-145); Total Protein 6.8 g/dL (6.6-8.7)
[2025-06-28 16:07] LABS: Respiratory Syncytial Virus Ce NEGATIVE (Negative)
[2025-06-28] MEDS: cefTRIAXone 1,000 mg SDV 1000 MG IVP (16:18)
[2025-06-28 16:19] LABS: SARS-CoV-2 PCR Positive (Negative)
--- NOTE | 2025-06-28 16:23 | ECG_ITS ---
[employer] Test Date: 2025-06-28 Pat Name: Leo Jung Jr Department: Room: Gender: Male Data Management Engineer: : 1945 Requested By: Benji Charlton Order Number: [id number] Reading MD: LUCA SORTO Measurements Intervals [place] Rate: 76 P: 52 FL: 240 QRS: 23 QRSD: 105 T: 56 QT: 365 QTc: 413 Interpretive Statements LEFT VENTRICULAR HYPERTROPHY AND ST-T CHANGE [VOLTAGE CRITERIA PLUS ST/T ABNORMALITY] Compared to ECG 06/28/2025 15:39:28 Sinus rhythm no longer present First degree AV block no longer present ST (T wave) deviation still present Electronically Signed On 06-28-2025 22:51:00 RIDE MECHANIC by LUCA SORTO [id number] [id number]
[2025-06-28] MEDS: FUROsemide 10 mg/mL SDV 10mL 60 MG IVP (16:28)
[2025-06-28 16:37] LABS: Troponin(5th) Baseline 54 ng/L (0-15)
--- NOTE | 2025-06-28 17:08 | ECG_ITS ---
[employer] Test Date: 2025-06-28 Pat Name: Leo Jung Jr Department: Room: Gender: Male Mid Wife: : 1945 Requested By: Benji Charlton Order Number: [id number] Abiodun MD: LUCA SORTO Measurements Intervals [place] Rate: 86 P: 0 SC: 0 QRS: 26 QRSD: 110 T: 75 QT: 424 QTc: 508 Interpretive Statements ATRIAL FIBRILLATION WITH ABERRANT CONDUCTION OR VENTRICULAR PREMATURE COMPLEXES MINIMAL VOLTAGE CRITERIA FOR LVH, CONSIDER NORMAL VARIANT [MEETS CRITERIA IN ONE OF: R(aVL), S(V1), R(V5), R(V5/V6)+S(V1)] NONSPECIFIC ST & T-WAVE ABNORMALITY PROLONGED QT INTERVAL Compared to ECG 06/28/2025 16:23:12 Ventricular premature complex(es) now present Aberrant conduction of supraventricular beat(s) now present T-wave abnormality now present Prolonged QT interval now present ST (T wave) deviation no longer present Electronically Signed On 06-28-2025 23:18:10 EXPERIMENTAL DISPLAY BUILDER by LUCA SORTO [id number] [id number]
--- NOTE | 2025-06-28 17:49 | P.HP_ITS ---
Providers/Chief Complaint 2 Admitting Physician: Dr. Weiss Primary Care Provider: Jalen Duarte DO Chief Complaint: weakness, sob, no appetite History of Present Illness Leo Jung Jr is a 79 year old male Patient presented to [facility] ED on 06/28/2025 for progressive shortness of breath that began ~1 week ago. The dyspnea is primarily exertional. Does not presence of orthopnea and lower extremity edema. Denies cough with purulence. Notes sinus congestion and drainage, which he notes to be chronic and unchanged. Denies fever/chills, headache, chest pain, palpitations, abdominal pain, GI distress and change in micturition. Denies melena and hematochezia. He does note newly developed abdominal distention over the past week. Reports diminished appetite and weight loss of 5-10 pounds over the last 2 weeks. Denies exposure to ill contacts. ED course and workup reviewed Inflammation Lactate 1.6 Hemogram WBC 9.65 RBC 3.62 PLT 190 HGB 10.10 Chemistry Na 144 K 3.4 Cl 101 Ca 8.7 CO2 26 AG 20.4 BUN 24 Cr 1.7 AST 22 ALT 13 ALP 109 T.Bili 1.4 Cardiac Trop 54 -> 52.77 w/ delta of -1.23 NTproBNP 05308 Viral Studies Influenza A/B (-), RSV (-), COVID (+) CXR: Probable COPD. Mild interstitial fibrotic changes in the lung bases. Old fractures in the right upper chest. Probable posttraumatic pleural thickening in the right lower chest. In ED patient received Total 250 ml NS bolus Azithromycin 500 mg Ceftriaxone 1 g Furosemide 60 mg IV Dexamethasone 10 mg IV Hydralazine 10 mg IV Review of Systems 2 General: Reports: 10 or more systems reviewed and unremarkable except in HPI and below Medications/Allergies Home Medications ?Medication ?Instructions ?Recorded ?Confirmed ?Last Taken ?Type carvedilol 6.25 mg tablet 6.25 mg PO BID #60 tabs 10/2406/28/25 06/27/25 Rx mirtazapine 7.5 mg tablet 7.5 mg PO DAILY PRN insomnia , low 02/02/25 06/28/25 Unknown Rx appetite #30 tabs docusate sodium 100 mg capsule 100 mg PO BID PRN const ipation #60 04/13/25 06/28/25 Unknown Rx caps hydralazine 50 mg tablet 50 mg PO TID #270 tabs 06/1106/28/25 06/27/25 Rx mupirocin 2 % topical ointment 1 applic topical BID ID N Skin 06/15/25 06/28/25 Unknown Rx Irritation #22 grams apixaban 2.5 mg tablet (Eliquis) 2.5 mg PO BID #60 tab s 06/22/25 06/28/25 06/27/25 Rx spironolactone 50 mg tablet 50 mg PO DAILY #60 tabs 06/28/25 06/27/25 Rx Zicam Nasal [place] 2 - 3 spray intranasal Q12H PRN 06/28/25 06/28/25 Unknown History Congestion furosemide 40 mg tablet (Lasix) 40 mg PO .QOD PRN Ar a 06/28/25 06/28/25 Unknown History pantoprazole 40 mg tablet,delayed 40 mg PO DAILY 06/2806/28/25 06/27/25 History release potassium chloride 10 mEq 10 meq PO .QOD 06/28/2506/02 Unknown History capsule,extended release Allergies Allergy/AdvReac Type Severity Reaction Status Date / Time Tetanus Vaccines and Toxoid Allergy Unknown Verified 06/28/25 15:09 PFSH Acute 2 PFSH: Medical History Stage 4 chronic kidney disease Upper GI bleed Atrial fibrillation, unspecified type Aortic valve stenosis Acute heart failure, unspecified heart failure type Essential hypertension Social History Smoking and tobacco/nicotine status: never used tobacco/nicotine Vitals/I&O/Wt Last Vital Signs Temp 99.7 F H 06/28/25 14:54 Pulse 93 06/28/25 14:54 Resp 20 H 06/28/25 14:54 BP 193/84 06/28/25 14:54 Pulse Ox 92 06/28/25 14:54 O2 Del Method Nasal Cannula 06/28/25 14:54 O2 Flow Rate 3 06/28/25 14:54 Weight last 48 hrs Weight 90.718 kg Physical Exam 2 Narrative: Constitutional * NAD Neurologic * Awake and alert. Oriented x3. * No facial asymmetry, unilateral weakness or speech deficits. Head * Normocephalic. Atraumatic. Eyes * PERRLA. EOMI. Sclera anicteric. Ears, Nose, Throat * Normal external ears. Hearing intact to normal voice. * Normal external nose. No epistaxis. * MMM Respiratory * Diminished * No dyspnea at rest or with conversation. No accessory muscle use. * On room air. Heart / Cardiovascular * Regular w/ ectopic beats * + Murmur Extremities * No edema bilaterally * Distal pulses 2+ and symmetric. No cyanosis. * Sensation intact to light touch. Abdomen / Gastrointestinal * Soft. Non-tender. Non-distended. + BS. Genitourinary * No suprapubic * No dewey catheter Musculoskeletal * No gross deformities, asymmetry, swelling or muscle atrophy on observation * Full ROM in all major joints without pain * Strength 5/5 throughout in bilateral upper and lower extremities Skin / Integumentary * No rashes, lesions, petechiae / ecchymosis, ulcerations or open wounds. Data 06/28/25 15:22 06/28/25 15:22 Micro: Microbiology 06/28/25 15:55 Blood Culture - Preliminary Blood SPECIMEN COLLECTED 06/28/25 15:54 Blood Culture - Preliminary Blood SPECIMEN COLLECTED CXR: Radiologist's impression: Exam: XR Chest Exam date and time: 06/28/2025 3:26 PM Age: 79 years old Clinical indication: Shortness of breath FINDINGS: Lungs: * Flattened diaphragms and pulmonary hyperlucency suggests likelihood of COPD. Pulmonary vascularity is normal. * Some interstitial septal thickening in the lung bases as well as some dependent atelectasis and fibrotic changes. Pleural spaces: * Probable post-traumatic pleural thickening in the right lower chest. * Blunting of the left costophrenic angle which is probably old scarring. Heart/Mediastinum: * Mild cardiomegaly is noted. Vasculature: * Mild aortic arch atherosclerosis. Bones/joints: * Some deformity in the ribcage the right upper chest with evidence of old fractures. This is likely posttraumatic. Old fracture of the right clavicle. The spine demonstrates mild degenerative changes at multiple levels. IMPRESSION: 1. Probable COPD. 2. Mild interstitial fibrotic changes in the lung bases. 3. Old fractures in the right upper chest. 4. Probable posttraumatic pleural thickening in the right lower chest. A&P Assessment and plan 1. COVID-19: Plan: # COVID-19 Infection Covid-19 positive on 06/28/25 Hypoxia present, requiring supplemental oxygen Not oxygen dependent at baseline - Dexamethasone 6 mg PO daily x10 days - Remdesivir - Labs: blood cultures collected in ED, results pending LDH, CRP, PCT - RT assess & treat - Continuous pulse oximetry - Oxygen therapy protocol - Incentive spirometer - Isolation precautions # Acute hypoxic respiratory failure # [id number] COPD exacerbation CXR notes probable COPD. Flattened diaphragms and pulmonary lucency. Septal thickening and mild interstitial fibrotic changes in the lower parts of the lungs present. Mild cardiomegaly. - baseline ABG - DuoNebs #Atrial fibrillation - Continue carvedilol and Eliquis recent history of internal also hemorrhage, he was restarted back on his Eliquis 2 weeks ago, will monitor closely for bleeding recurrence. Now on steroids. Does have PPI. # Normocytic anemia PDMP PDMP Reviewed: Not Reviewed Attestations 2 Medical Necessity Statement*: Admitted under inpatient status. Given complexity of patient's presentation, co-morbid conditions, and required intensity of treatment, a hospitalization exceeding two midnights is anticipated. Coding Level of Care Code Acute Code for Chg Fwd Diagnoses COVID-19 U07.1
[2025-06-28] MEDS: hyDRALAzine 20 mg/mL INJ 1 mL 10 MG IVP (17:54)
[2025-06-28 18:47] LABS: Add On to Lab Order(s) Added
[2025-06-28 19:58] LABS: Procalcitonin 0.14 ng/mL (0-0.5)
[2025-06-28 21:41] LABS: Troponin 5 6HR 56.55 ng/L (0-15); Troponin 5 6HR Delta 2.55 ng/L (0-12)
--- NOTE | 2025-06-28 22:08 | ECG_ITS ---
[facility] Test Date: 2025-06-29 Pat Name: Leo Jung Jr Department: Room: 273 Gender: Male Recreational Director: : 1945 Requested By: Benji Charlton Order Number: [id number] Reading MD: LUCA SORTO Measurements Intervals [place] Rate: 44 P: -14 DE: 209 QRS: 39 QRSD: 109 T: -32 QT: 607 QTc: 522 Interpretive Statements SINUS BRADYCARDIA WITH OCCASIONAL SUPRAVENTRICULAR PREMATURE COMPLEXES LEFT VENTRICULAR HYPERTROPHY AND ST-T CHANGE [VOLTAGE CRITERIA PLUS ST/T ABNORMALITY] PROLONGED QT INTERVAL CRITICAL TEST RESULT Compared to ECG 06/28/2025 17:13:42 ST (T wave) deviation now present Atrial fibrillation no longer present Ventricular premature complex(es) no longer present Aberrant conduction of supraventricular beat(s) no longer present T-wave abnormality no longer present Electronically Signed On 07-02-2025 18:53:33 WASHERY ENGINEER by LUCA SORTO [id number] [id number]
[2025-06-28] MEDS: remdesivir 200 MG in sodium chloride 0.9% (100 ml) 60 ML 100 MG IV (22:57)
[2025-06-29] VITALS (9 sets, daily range): BP systolic 110–162; BP diastolic 60–73; PULSE 66–90; RESP 16–20; TEMP 36.4–36.8; O2SAT 94–97; BMI 27.7
[2025-06-29 03:59] LABS: Hematocrit 26.9 % (37-53); Hemoglobin 8.40 g/dL (11.27-16.99); Mean Corpuscular HGB Conc 31.2 g/dL (30-55); Mean Corpuscular Hemoglobin 28.1 pg (27-33); Mean Corpuscular Volume 90.0 fl (82-101); Platelet Count 139 10^3/cmm (157-399); Red Blood Count 2.99 10^6/uL (3.85-5.65); White Blood Count 5.33 10^3/uL (3.29-11.43)
[2025-06-29 04:19] LABS: Alanine Aminotransferase 11 U/L (0-41); Albumin Level 3.5 g/dL (3.5-5.2); Alkaline Phosphatase 87 U/L (40-130); Anion Gap 13.9 (5-19); Aspartate Amino Transferase 20 U/L (0-40); Blood Urea Nitrogen 31 mg/dL (8-23); Calcium 8.0 mg/dL (8.5-10.5); Carbon Dioxide 29 mmol/L (22-29); Chloride 103 mmol/L (98-107); Globulin 1.6 g/dL (1.3-4.6); Glucose 230 mg/dL (65-115); Magnesium 2.1 mg/dL (1.7-2.3); Osmolality Calculated 310 mOsm/kg (285-295); Sodium 143 mmol/L (136-145); Total Protein 5.1 g/dL (6.6-8.7)
[2025-06-29 04:30] LABS: Potassium 2.9 mmol/L (3.5-5.1)
[2025-06-29] MEDS: APIXABAN 2.5 MG TABLET PO ×2 (05:08→16:20)
[2025-06-29 05:35] LABS: Absolute Segmented Neutrophil 4.5 10/cmm (1.6-7.1); Band Neutrophils Absolute 0.2 10^3/cmm (0.0-1.2); Total Cells Counted 100 (0-100)
[2025-06-29 05:36] LABS: Atypical Lymphs 0.0 % (0-5)
--- NOTE | 2025-06-29 09:22 | PC.CHAP ---
Pastoral Care Encounter/Spiritual Assessment Type of Contact [] Declined parks and recreation worker visit [] Patient/Family/Request visit [] Outpatient visit [] Follow-up visit [] Physician referral [] Code/Alert [x] Routine visit [] Staff referral [] Actively dying [] Patient sleeping [] Family support [] [] Out of room [] Palliative care [] [] Receiving care in room [] Pre-surgical visit [] Trauma [] Long length of stay [] ICU visit [] Other: Relational/Emotional Strength [] Patient feels connected with others/family/visitors/staff [] Distress [] Loneliness/isolation [] Abandonment Spirituality of Patient [] Person of Marta [] Attends Islam of their Marta [] Believes in Prayer [] Reads Bible or Religion materials [] There are Spiritual issues to be addressed [employer] Driver Interventions [x] Prayer [] Active listening [] Non-anxious presence [] Spiritual/emotional support [] Crisis/trauma care [] Spiritual counseling [] Bereavement support [] Provided bereavement packet [] Provided Bible/devotional materials [] Provided toy/stuffed animal, coloring book to patient or family member [] Provided Communion [] Anointing/[place] [] Salvation [] Completed spiritual assessment [] Other: Impact on Illness or Injury [] Angry [] Fearful [] Anxious [] Often cries [] Exhaustion [] Unable to work [] Unable to attend mormonism [] Unable to walk/stand [] Unable to read [] Unable to drive [] Unable to eat/drink [] Unable to sleep [] Unable to be with family [] Patient intubated [] Other: Summary precaution Time spent with patient
--- NOTE | 2025-06-29 11:24 | P.PN_ITS ---
Subjective 2 Subjective: Patient is a very pleasant 79-year-old male seen and examined at bedside on hospital rounds today. Patient sitting up in bed with improved shortness of breath but continues to have shortness of breath. Patient denies chest pain, states that his legs are less swollen today than they were yesterday. Patient request that wound care be notified that he will not make his appointment today. Patient denies any new or worsening symptoms. Vital signs reviewed blood pressure 139/60, pulse 73, respirations 20, temperature 97.8 ?F, oxygen saturation 97% on supplemental oxygen via nasal cannula. Review of labs WBC WNL 5.33, hemoglobin 8.40, potassium 2.9?given supplemental replacement pending repeat lab, BUN 31, creatinine 1.9, lactic acid 1.6, magnesium 2.1. Vitals/I&O/Wt Last Vital Signs Temp 97.8 F 06/29/25 07:43 Pulse 73 06/29/25 07:43 Resp 20 H 06/29/25 06:30 BP 139/60 06/29/25 07:43 Pulse Ox 97 06/29/25 07:43 O2 Del Method Nasal Cannula 06/29/25 07:43 O2 Flow Rate 2 06/29/25 07:43 06/28/25 06/29/25 06/29/25 22:59 06:59 14:59 Intake Total 630 / 630 100 / 730 360 / 360 Output Total 400 / 400 500 / 900 Balance 230 / 230 -400 / -170 360 / 360 Weight last 48 hrs Weight 92.669 kg Weight 90.855 kg Weight 90.718 kg Physical Exam 2 Narrative: Constitutional * NAD Neurologic * Awake and alert. Oriented x3. * No facial asymmetry, unilateral weakness or speech deficits. Head * Normocephalic. Atraumatic. Eyes * PERRLA. EOMI. Sclera anicteric. Ears, Nose, Throat * Normal external ears. Hearing intact to normal voice. * Normal external nose. No epistaxis. * MMM Respiratory * Diminished * No dyspnea at rest or with conversation. No accessory muscle use. * On supplemental oxygen 2 L/min via nasal cannula. Heart / Cardiovascular * Regular w/ ectopic beats * + Murmur Extremities * 1+ bilateral dependent edema * Distal pulses 2+ and symmetric. No cyanosis. * Sensation intact to light touch. Abdomen / Gastrointestinal * Soft. Non-tender. Non-distended. + BS. Genitourinary * No suprapubic * No dewey catheter Musculoskeletal * No gross deformities, asymmetry, swelling or muscle atrophy on observation * Full ROM in all major joints without pain * Strength 5/5 throughout in bilateral upper and lower extremities Skin / Integumentary * No rashes, lesions, petechiae / ecchymosis, ulcerations or open wounds. Data 06/29/25 03:21 06/29/25 03:21 Micro: Microbiology 06/28/25 15:55 Blood Culture - Preliminary Blood SPECIMEN COLLECTED 06/28/25 15:54 Blood Culture - Preliminary Blood SPECIMEN COLLECTED A&P Assessment and plan 1. COVID-19: Plan: # COVID-19 Infection Covid-19 positive on 06/28/25 Hypoxia present, requiring supplemental oxygen Not oxygen dependent at baseline - Dexamethasone 6 mg PO daily x10 days - Remdesivir day 2 - Labs: blood cultures collected in ED, results pending LDH, CRP, PCT - RT assess & treat - Continuous pulse oximetry - Oxygen therapy protocol - Incentive spirometer - Isolation precautions # Acute hypoxic respiratory failure # [id number] COPD exacerbation CXR notes probable COPD. Flattened diaphragms and pulmonary lucency. Septal thickening and mild interstitial fibrotic changes in the lower parts of the lungs present. Mild cardiomegaly. - baseline ABG - DuoNebs #Atrial fibrillation - Continue carvedilol and Eliquis recent history of internal also hemorrhage, he was restarted back on his Eliquis 2 weeks ago, will monitor closely for bleeding recurrence. Now on steroids. Does have PPI, increasing to BID. # Normocytic anemia - Hgb 10.10--<8.40 PDMP PDMP Reviewed: Not Reviewed Attestations 2 Medical Necessity Statement*: Admitted under inpatient status. Given complexity of patient's presentation, co-morbid conditions, and required intensity of treatment, continued inpatient treatment required. Coding Level of Care Code 93677 Diagnoses COVID-19 U07.1
[2025-06-29 13:04] LABS: Potassium 3.2 mmol/L (3.5-5.1)
[2025-06-29] MEDS: remdesivir 100 MG in sodium chloride 0.9% (100 ml) 80 ML IV (16:25)
[2025-06-30] VITALS (7 sets, daily range): BP systolic 100–186; BP diastolic 64–75; PULSE 70–87; RESP 15–18; TEMP 36.4–37.2; O2SAT 84–97
[2025-06-30] MEDS: APIXABAN 2.5 MG TABLET PO (04:08)
[2025-06-30 06:03] LABS: Hematocrit 29.1 % (37-53); Hemoglobin 9.20 g/dL (11.27-16.99); Mean Corpuscular HGB Conc 31.6 g/dL (30-55); Mean Corpuscular Hemoglobin 28.5 pg (27-33); Mean Corpuscular Volume 90.1 fl (82-101); Nucleated Red Blood Cells % 0 %; Platelet Count 170 10^3/cmm (157-399); Red Blood Count 3.23 10^6/uL (3.85-5.65); White Blood Count 6.68 10^3/uL (3.29-11.43)
[2025-06-30 06:32] LABS: Alanine Aminotransferase 14 U/L (0-41); Albumin Level 3.5 g/dL (3.5-5.2); Alkaline Phosphatase 87 U/L (40-130); Anion Gap 15.3 (5-19); Aspartate Amino Transferase 22 U/L (0-40); Blood Urea Nitrogen 36 mg/dL (8-23); Calcium 7.9 mg/dL (8.5-10.5); Carbon Dioxide 28 mmol/L (22-29); Chloride 103 mmol/L (98-107); Globulin 2.1 g/dL (1.3-4.6); Glucose 207 mg/dL (65-115); Magnesium 2.1 mg/dL (1.7-2.3); Osmolality Calculated 310 mOsm/kg (285-295); Potassium 3.3 mmol/L (3.5-5.1); Sodium 143 mmol/L (136-145); Total Protein 5.6 g/dL (6.6-8.7)
--- NOTE | 2025-06-30 09:56 | PC.CHAP ---
Pastoral Care Encounter/Spiritual Assessment Type of Contact [] Declined regulatory attorney visit [] Patient/Family/Request visit [] Outpatient visit [] Follow-up visit [] Physician referral [] Code/Alert [] Routine visit [] Staff referral [] Actively dying [] Patient sleeping [] Family support [] [] Out of room [] Palliative care [] [] Receiving care in room [] Pre-surgical visit [] Trauma [] Long length of stay [] ICU visit [x] Other:Contact precautions. No visit. Relational/Emotional Strength [] Patient feels connected with others/family/visitors/staff [] Distress [] Loneliness/isolation [] Abandonment Spirituality of Patient [] Person of Marta [] Attends Anabaptist of their Marta [] Believes in Prayer [] Reads Bible or Tenriism materials [] There are Spiritual issues to be addressed Economic History Teacher Interventions [] Prayer [] Active listening [] Non-anxious presence [] Spiritual/emotional support [] Crisis/trauma care [] Spiritual counseling [] Bereavement support [] Provided bereavement packet [] Provided Bible/devotional materials [] Provided toy/stuffed animal, coloring book to patient or family member [] Provided Communion [] Anointing/Tatum [] Salvation [] Completed spiritual assessment [] Other: Impact on Illness or Injury [] Angry [] Fearful [] Anxious [] Often cries [] Exhaustion [] Unable to work [] Unable to attend protestant [] Unable to walk/stand [] Unable to read [] Unable to drive [] Unable to eat/drink [] Unable to sleep [] Unable to be with family [] Patient intubated [] Other: Summary Time spent with patient
--- NOTE | 2025-06-30 12:34 | P.DS_ITS ---
Discharge Providers Date of Admission: 06/28/25 16:26 Date of Discharge: June 30, 2025 Attending Provider at Admission: Franky Weiss MD Attending Provider at Discharge: Genevieve Elizondo NP Primary Care Provider: Jalen Duarte DO Diagnoses at Discharge Discharge Diagnosis 1. COVID-19: Reason for Visit Reason for Visit: weakness, sob, no appetite Brief History: Admission: Patient presented to [facility] ED on 06/28/2025 for progressive shortness of breath that began ~1 week ago. The dyspnea is primarily exertional. Does not presence of orthopnea and lower extremity edema. Denies cough with purulence. Notes sinus congestion and drainage, which he notes to be chronic and unchanged. Denies fever/chills, headache, chest pain, palpitations, abdominal pain, GI distress and change in micturition. Denies melena and hematochezia. He does note newly developed abdominal distention over the past week. Reports diminished appetite and weight loss of 5-10 pounds over the last 2 weeks. Denies exposure to ill contacts. Hospital Course Hospital Course 1. COVID-19: Plan: # COVID-19 Infection Covid-19 positive on 06/28/25 Hypoxia present, requiring supplemental oxygen Not oxygen dependent at baseline - Dexamethasone 6 mg PO daily x10 days - Remdesivir day 2 - Labs: blood cultures collected in ED, results pending LDH, CRP, PCT - RT assess & treat - Continuous pulse oximetry - Oxygen therapy protocol - Incentive spirometer - Isolation precautions # Acute hypoxic respiratory failure # [id number] COPD exacerbation CXR notes probable COPD. Flattened diaphragms and pulmonary lucency. Septal thickening and mild interstitial fibrotic changes in the lower parts of the lungs present. Mild cardiomegaly. - baseline ABG - DuoNebs #Atrial fibrillation - Continue carvedilol and Eliquis recent history of internal also hemorrhage, he was restarted back on his Eliquis 2 weeks ago, will monitor closely for bleeding recurrence. Now on steroids. Does have PPI, increasing to BID. # Normocytic anemia - Hgb 10.10--<8.40--<9.20 Discharge: Patient refused further dosing of remdesivir stating that he needed to go home and take care of his animals. Patient qualified for home oxygen 2 to 3 L/min, discharges with oxygen. Patient continues remaining days of steroids, prescription for dexamethasone sent to pharmacy. Advised patient to resume home medications as previously prescribed. Patient discharge is in stable condition, advised follow-up with primary care provider in 1 to 2 days of discharge. All questions and concerns addressed with the patient prior to discharge. Physical Exam Narrative: Constitutional * NAD Neurologic * Awake and alert. Oriented x3. * No facial asymmetry, unilateral weakness or speech deficits. Head * Normocephalic. Atraumatic. Eyes * PERRLA. EOMI. Sclera anicteric. Ears, Nose, Throat * Normal external ears. Hearing intact to normal voice. * Normal external nose. No epistaxis. * MMM Respiratory * Diminished * No dyspnea at rest or with conversation. No accessory muscle use. * On supplemental oxygen 2 L/min via nasal cannula. Heart / Cardiovascular * Regular w/ ectopic beats * + Murmur Extremities * 1+ bilateral dependent edema * Distal pulses 2+ and symmetric. No cyanosis. * Sensation intact to light touch. Abdomen / Gastrointestinal * Soft. Non-tender. Non-distended. + BS. Genitourinary * No suprapubic * No dewey catheter Musculoskeletal * No gross deformities, asymmetry, swelling or muscle atrophy on observation * Full ROM in all major joints without pain * Strength 5/5 throughout in bilateral upper and lower extremities Skin / Integumentary * No rashes, lesions, petechiae / ecchymosis, ulcerations or open wounds. Discharge Data Studies Completed and Pending Completed Studies During Hospitalization Category Date Time Status XR chest 1V portable [id number] Stat Exams 06/28/25 14:59 Completed Pending at discharge Category Date Time Status Blood Culture Stat Lab 06/28/25 15:55 Results Complete Blood Count w/Auto AM LABS Lab 07/02/25 04:00 Ordered Complete Blood Count w/Auto AM LABS Lab 07/01/25 04:00 Ordered Comprehensive Metabolic Panel AM LABS Lab 07/02/25 04:00 Ordered Comprehensive Metabolic Panel AM LABS Lab 07/01/25 04:00 Ordered Radiology Impressions Chest X-Ray 06/28/25 14:59 IMPRESSION: 1. Probable COPD. 2. Mild interstitial fibrotic changes in the lung bases. 3. Old fractures in the right upper chest. 4. Probable posttraumatic pleural thickening in the right lower chest. Laboratory Results WBC 6.68 10^3/uL (3.29-11.43) 12/30/25 05:42 RBC 3.23 10^6/uL (3.85-5.65) L 06/30/25 05:42 Hgb 9.20 g/dL (11.27-16.99) L 06/30/25 05:42 Hct 29.1 % (37-53) L 06/30/25 05:42 MCV 90.1 fl (82-101) 06/30/25 05:42 MCH 28.5 pg (27-33) 06/30/25 05:42 MCHC 31.6 g/dL (30-55) 06/30/25 05:42 RDW 15.8 % (12.1-15.1) H 06/30/25 05:42 Plt Count 170 10^3/cmm (157-399) 06/30/25 05:42 MPV 11.7 fL (7.4-10.4) H 06/30/25 05:42 Neut % (Auto) 84.6 % 06/30/25 05:42 Lymph % (Auto) 10.8 % 06/30/25 05:42 Crisp % (Auto) 4.2 % 06/30/25 05:42 Eos % (Auto) 0.0 % 06/30/25 05:42 Baso % (Auto) 0.0 % 06/30/25 05:42 Neut # (Auto) 5.65 10^3/uL (1.8-7.7) 06/30/25 05:42 Lymph # (Auto) 0.7 10^3/uL (0.8-4.8) L 06/30/25 05:42 Crisp # (Auto) 0.3 10^3/uL (0.2-0.9) 06/30/25 05:42 Eos # (Auto) 0.0 10^3/uL (0.0-0.8) 06/30/25 05:42 Baso # (Auto) 0.0 10^3/uL (0.0-0.1) 06/30/25 05:42 Nucleated RBC % (auto) 0 % 06/30/25 05:42 Total Counted 100 (0-100) 06/29/25 03:21 Atypical Lymphs % 0.0 % (0-5) 06/29/25 03:21 Absolute Neutrophils 4.7 10^3/cmm (1.4-6.5) 06/29/25 03:21 Segmented Neutrophils 85 % 06/29/25 03:21 Band Neutrophils 3.0 % 06/29/25 03:21 Absolute Lymphocytes 0.2 10^3/cmm (1.2-3.4) L 06/29/25 03:21 Lymphocytes (Manual) 4 % 06/29/25 03:21 Monocytes (Manual) 8.0 % 06/29/25 03:21 Absolute Monocytes 0.4 10^3/cmm (0.1-0.6) 06/29/25 03:21 Eosinophils (Manual) 0 % 06/29/25 03:21 Absolute Eosinophils 0.0 10^3/cmm (0.0-0.7) 06/29/25 03:21 Basophils (Manual) 0.0 % 06/29/25 03:21 Absolute Basophils 0.0 10^3/cmm (0.0-0.2) 06/29/25 03:21 Nucleated RBCs # 0.0 /100WBC 06/30/25 05:42 Platelet Estimate Normal (Normal) 06/29/25 03:21 Sodium 143 mmol/L (136-145) 06/30/25 05:42 Potassium 3.3 mmol/L (3.5-5.1) L 06/30/25 05:42 Chloride 103 mmol/L (98-107) 06/30/25 05:42 Carbon Dioxide 28 mmol/L (22-29) 06/30/25 05:42 Anion Gap 15.3 (5-19) 06/30/25 05:42 BUN 36 mg/dL (8-23) H 06/30/25 05:42 Creatinine 2.1 mg/dL (0.7-1.2) H 06/30/25 05:42 GFR Calculation Not Reportable 06/30/25 05:42 Glucose 207 mg/dL (65-115) H 06/30/25 05:42 Calculated Osmolality 310 mOsm/kg (285-295) H 06/30/25 05:42 Lactic Acid 1.6 mmol/L (0.5-2.2) 06/28/25 15:20 Calcium 7.9 mg/dL (8.5-10.5) L 06/30/25 05:42 Magnesium 2.1 mg/dL (1.7-2.3) 06/30/25 05:42 Total Bilirubin 0.6 mg/dL (0.15-1.2) 06/30/25 05:42 AST 22 U/L (0-40) 06/30/25 05:42 ALT 14 U/L (0-41) 06/30/25 05:42 Alkaline Phosphatase 87 U/L (40-130) 06/30/25 05:42 Lactate Dehydrogenase 283 U/L (135-225) H 06/28/25 15:22 Troponin T Baseline 54 ng/L (0-15) H 06/28/25 15:22 Troponin T 60 Minute 52.77 ng/L (0-15) H 06/28/25 16:30 Delta Troponin T -1.23 ABS# (0-10) L 06/28/25 16:30 Troponin T Hi Sens 6Hr 56.55 ng/L (0-15) H 06/28/25 21:18 Troponin T Hi Sens 6Hr Delta 2.55 ng/L (0-12) 06/28/25 21:18 C-Reactive Protein 24.2 mg/L (0.0-4.9) H 06/28/25 15:22 NT-Pro-B Natriuret Pep 76554 pg/mL (0-450) H 06/28/25 15:22 Total Protein 5.6 g/dL (6.6-8.7) L 06/30/25 05:42 Albumin 3.5 g/dL (3.5-5.2) 06/30/25 05:42 Globulin 2.1 g/dL (1.3-4.6) 06/30/25 05:42 Procalcitonin 0.14 ng/mL (0-0.5) 06/28/25 15:22 Influenza A (PCR) Negative (Negative) 06/28/25 15:25 Influenza Type B (PCR) Negative (Negative) 06/28/25 15:25 RSV (PCR) Negative (Negative) 06/28/25 15:25 SARS-CoV-2 (PCR) Positive (Negative) A 06/28/25 15:25 Vitals Last Vital Signs Temp 97.6 F 06/30/25 10:56 Pulse 70 06/30/25 10:56 Resp 15 06/30/25 10:56 BP 100/64 06/30/25 10:56 Pulse Ox 95 06/30/25 11:50 O2 Del Method Nasal Cannula 06/30/25 11:50 O2 Flow Rate 2 06/30/25 11:50 Discharge Plan Discharge Patient Disposition: Home Condition: Stable Prescriptions: New dexamethasone 4 mg Tablet 8 mg PO DAILY 8 Days Qty: 8 0RF (DME) nebulizer and compressor Device See Rx Instructions .Route Qty: 1 0RF Rx Instructions: As directed ipratropium-albuterol 0.5 mg-3 mg(2.5 mg base)/3 mL solution for nebulization 3 ml inhalation Q6H PRN (Reason: shortness of breath) Qty: 90 0RF Continued docusate sodium 100 mg capsule 100 mg PO BID PRN (Reason: constipation) Qty: 60 5RF spironolactone 50 mg tablet 50 mg PO DAILY Qty: 60 2RF Eliquis 2.5 mg tablet 2.5 mg PO BID Qty: 60 2RF carvedilol 6.25 mg tablet 6.25 mg PO BID Qty: 60 5RF Rx Instructions: must administer with a meal/food mirtazapine 7.5 mg tablet 7.5 mg PO DAILY PRN (Reason: insomnia, low appetite) Qty: 30 2RF hydralazine 50 mg tablet 50 mg PO TID Qty: 270 3RF mupirocin 2 % ointment 1 applic topical BID PRN (Reason: Skin Irritation) Qty: 22 1RF pantoprazole 40 mg tablet,delayed release (DR/EC) 40 mg PO DAILY furosemide [Lasix] 40 mg tablet 40 mg PO .QOD PRN (Reason: Edema) potassium chloride 10 mEq capsule, extended release 10 meq PO .QOD Zicam Nasal [place] 2 - 3 spray intranasal Q12H PRN (Reason: Congestion) Discharge Order = DC NOW: Discharge Order (Routine); Ordered 06/30/25 Ordered By: Genevieve Elizondo Other Ambulatory Orders: DME: Nebulizer with Neb Kit (Order) Location: None Selected Ordered By: Genevieve Elizondo DME: Oxygen (Order) Location: None Selected Ordered By: Genevieve Elizondo [place] [facility] [place] [facility] - 07/07/25 1:30 pm Referral Note: Discharge Diet: Usual diet Discharge Activity: Resume usual activity Patient Instructions: Ipratropium/Albuterol (By breathing), Dexamethasone (By mouth), Using Oxygen at Home (GEN), COVID-19 (Coronavirus Disease 2019) (GEN), Opioid Safety, Patient Portal & James Instructions Discharge Attestations Time Spent in Discharge Care*: greater than 30 min Status at Discharge: Cognitive status at discharge: cognitively intact , Behavioral status at discharge: cooperative , Quality Metrics Clinical Quality Measures [ No reported AMI, CVA or VTE this stay] Coding Level of Care Code 81504 Diagnoses COVID-19 U07.1
== END 2025-06-30 14:59 | disposition home or self-care (01) | DRG 177 ==
LOC: ER 16:31 → MEDSURG 17:56
PROVIDERS: Nurse Practitioner Gerontology; Admitting Provider Internal Medicine; Emergency Provider Emergency Medicine; PCP Family Medicine; Visit Provider Registered Nurse
DX: U07.1 COVID-19 (principal); J96.01 Acute respiratory failure with hypoxia; J44.1 Chronic obstructive pulmonary disease with (acute) exacerbation; I13.0 Hypertensive heart and chronic kidney disease with heart failure and stage 1 through stage 4 chronic kidney disease, or unspecified chronic kidney disease; N18.4 Chronic kidney disease, stage 4 (severe); I48.91 Unspecified atrial fibrillation; D64.9 Anemia, unspecified; I50.9 Heart failure, unspecified; I35.0 Nonrheumatic aortic (valve) stenosis; Z79.01 Long term (current) use of anticoagulants; Z79.899 Other long term (current) drug therapy
CPT/HCPCS: 36415; 71045; 80053; 83605; 83615; 83735; 83880; 84132; 84145; 84484; 85007; 85025; 85027; 86140; 87040; 87637; 93005; 94664; 94760; 96365; 96375; 99285; J0248; J0360; J0456; J0696; J1100; J1938; J7050; J8540; J9999